=== PATIENT | male | born 1980 | race Caucasian/White ===

== ENCOUNTER 2020-05-12 10:54 | Outpatient (CLI) | payer OTHER, MEDICAID, SELFPAY ==
[2020-05-17 06:51] LABS: SARS-CoV-2 RNA Undetected (Undetected); SARS-CoV-2 Specimen Source Nasopharynx
== END 2020-05-12 11:14 ==
PROVIDERS: PCP Nurse Practitioner Family; Visit Provider Family Medicine
DX: Z11.59 Encounter for screening for other viral diseases (principal)
CPT/HCPCS: U0003

== ENCOUNTER → 2020-06-19 10:27 | Outpatient (BNVA) | payer OTHER, MEDICAID, SELFPAY | PROVIDERS: PCP Physician Assistant; Referring Provider Physician Assistant; Visit Provider Surgery | DX: K60.2 Anal fissure, unspecified (principal); E11.9 Type 2 diabetes mellitus without complications | CPT/HCPCS: 99202 ==

== ENCOUNTER 2021-06-03 09:48 | Outpatient (REF) | payer MEDICARE, MEDICAID, SELFPAY ==
[2021-06-03 14:22] LABS: Hemoglobin A1C 6.1 % (<5.7)
[2021-06-03 14:27] LABS: ALT 63 U/L (16-63); AST 31 U/L (15-37); Albumin 3.7 g/dL (3.4-5.0); Alkaline Phosphatase 68 U/L (46-116); Anion Gap 7.7 mmol/L (3-11); BUN 17 mg/dL (7-18); Bilirubin, Total 0.6 mg/dL (0.2-1.0); CO2 29.3 mmol/L (21.0-32.0); COMMENT (LAB VIEW ONLY) 136.87 mg/dL; CREATININE 0.8 mg/dL (0.70-1.30); Calcium 8.7 mg/dL (8.5-10.1); Calculated LDL 65 mg/dL (<100); Chloride 107 mmol/L (98-107); Cholesterol 130 mg/dL (<200); Glucose 165 mg/dL (74-106); HDL Cholesterol 34 mg/dL (40-60); Microalb ug/mg Crea 13.8 ug/mg Cr; Potassium 3.5 mmol/L (3.5-5.1); Sodium 144 mmol/L (136-145); Total Protein 6.8 g/dL (6.4-8.2); Triglyceride 159 mg/dL (<150)
[2021-06-04 01:30] LABS: Vitamin D 25 Total 25.2 ng/mL (30-100)
== END 2021-06-03 09:49 | disposition home or self-care (01) ==
LOC: NCHCN 09:48
PROVIDERS: PCP Physician Assistant; Visit Provider Physician Assistant
DX: E11.9 Type 2 diabetes mellitus without complications (principal); E78.5 Hyperlipidemia, unspecified; I10 Essential (primary) hypertension; E55.9 Vitamin D deficiency, unspecified
CPT/HCPCS: 80053; 80061; 82306; 82043; 82570; 83036

== ENCOUNTER 2021-08-11 11:02 | Outpatient (CLI) | payer MEDICARE, MEDICAID, SELFPAY ==
--- NOTE | 2021-08-11 15:05 | DI.RAD_ITS ---
Exam(s) XR CHEST 2V PA LATERAL EXAM: XR CHEST 2V PA LATERAL CLINICAL HISTORY: DYSPNEA R06.00. TECHNIQUE: 2D digital imaging was performed. COMPARISON: CR CHEST 2 VIEWS PA,LAT from 09/26/2015 FINDINGS: Heart size is normal. The mediastinum is not widened. Left lung is clear. There is very subtle increased markings in the mid right lung zone IMPRESSION: Subtle increased markings lateral right lung level. Follow-up chest radiograph after appropriate cli nical interval recommended. DATA REPOSITORY: RADIATION DOSE DELIVERED:
== END 2021-08-11 11:22 ==
PROVIDERS: PCP Physician Assistant; Visit Provider Nurse Practitioner Family
DX: R06.00 Dyspnea, unspecified (principal); R91.8 Other nonspecific abnormal finding of lung field
CPT/HCPCS: 71046

== ENCOUNTER 2021-08-11 14:06 | Outpatient (REF) | payer MEDICARE, MEDICAID, SELFPAY ==
[2021-08-12 13:56] LABS: COVID-19 RT-PCR UVMMC Result Negative (Negative)
== END 2021-08-11 14:07 | disposition home or self-care (01) ==
LOC: LBN 14:06
PROVIDERS: PCP Physician Assistant; Visit Provider Nurse Practitioner Family
DX: Z20.822 Contact with and (suspected) exposure to COVID-19 (principal); J06.9 Acute upper respiratory infection, unspecified
CPT/HCPCS: U0003; U0005

== ENCOUNTER 2021-10-28 02:43 | Outpatient (CLI) | payer MEDICARE, MEDICAID, SELFPAY ==
[2021-10-28 14:43] LABS: HCT 53.6 % (40.0-50.0); HGB 17.1 g/dL (13.5-17.5); MCHC 31.9 % (32.0-36.0); MPV 10.8 fL (8.0-11.0); Platelet Count 160 10^3/uL (130-400); RDW 13.2 % (11.8-14.1); RDW-SD 45.9 fL; WBC 4.32 10^3/uL (4.4-10.8)
[2021-10-28 14:50] LABS: Anion Gap 6.1 mmol/L (3-11); BUN 13 mg/dL (7-18); CO2 32.9 mmol/L (21.0-32.0); CREATININE 0.9 mg/dL (0.70-1.30); Calcium 9.1 mg/dL (8.5-10.1); Chloride 106 mmol/L (98-107); Glucose 112 mg/dL (74-106); Potassium 4.2 mmol/L (3.5-5.1); Sodium 145 mmol/L (136-145)
[2021-10-29 10:38] LABS: Prealbumin 23 mg/dL (20-40)
== END 2021-10-28 02:44 | disposition home or self-care (01) ==
LOC: LBO 02:43
PROVIDERS: Surgery Vascular Surgery; PCP Physician Assistant; Visit Provider Physician Assistant
DX: I83.893 Varicose veins of bilateral lower extremities with other complications (principal); Z01.818 Encounter for other preprocedural examination
CPT/HCPCS: 80048; 85027; 84134

== ENCOUNTER 2021-10-28 07:41 | Outpatient (CLI) | payer MEDICARE, MEDICAID, SELFPAY ==
--- OUTSIDE RECORDS SUMMARY | 2021-10-28 07:57 | XMS_ITS ---
:1980 Author Care Team Providers Name Role Phone VASU GALLO Primary Care Provider [phone] [facility] OTHER [phone] Allergies Code Code System Name Reaction Severity Status Onset NKDA ? Medications Name Status Start Date Stop Date ? ? Alma Allergy 180 mg tablet Active ? No t available Take 1 tablet every day by oral route. atorvastatin 40 mg tablet Active ? Not av ailable Take 1 tablet every day by oral route. Farxiga 10 mg tablet Active ? Not availab le Take 1 tablet every day by oral route. furosemide 20 mg tablet Active ? Not avai lable Take 1 tablet every day by oral route. hydroxyzine HCl 25 mg tablet Active ? Not available Take 1 tablet every day by oral route. lisinopril 20 mg tablet Active ? Not avai lable Take 1 tablet every day by oral route. Lyrica 75 mg capsule Active ? Not availab le Take 1 capsule twice a day by oral route at bedtime. omeprazole 20 mg capsule,delayed release Active ? Not available Take 1 capsule every day by oral route. Trulicity 0.75 mg/0.5 mL subcutaneous pen injector Active ? Not available Inject by subcutaneous route. Vitamin D3 25 mcg (1,000 unit) capsule Active ? Not available Take 1 microgram every day by oral route. Problems Name Status Onset Date Source ? Diabetes Mellitus Unknown 04/27/2021 ? Type 2 Diabetes Mellitus Active 04/27/2021 ? Vitamin D Deficiency Active 04/27/2021 ? Hyperlipidemia Active 04/27/2021 ? Morbid Obesity Active 04/27/2021 ? Insomnia Active 04/27/2021 ? Neuropathy Due to Diabetes Mellitus Active 04/27/2021 ? Hypertensive Disorder Active 04/27/2021 ? Seasonal Allergic Rhinitis Active 04/27/2021 ? Gastroesophageal Reflux Disease Active 04/27/2021 ? Steatosis of Liver Active 04/27/2021 ? Low Back Pain Active 04/27/2021 ? Sleep Apnea Active 04/27/2021 ? Edema Active 04/27/2021 ? Apnea Active 04/27/2021 ? Obstructive Sleep Apnea Syndrome Active ? ? Procedures None recorded. Results Lab Results None recorded. Past Encounters 04/28/2021 Obstructive Sleep Apnea Syndrome; Insomn ia Darcy Guzman [employer]: [address] [place] [id number], Ph. Social History Tobacco Smoking Status Former Smoker Notes: quite i n 2013 Vaccine List None recorded. Plan of Care Reminders Provider Appointments None ? ? recorded. Lab None ? ? recorded. Referral None ? ? recorded. Procedures None ? ? recorded. Surgeries None ? ? recorded. Imaging None ? ? recorded. Vitals Height Weight BMI Blood Pressure 180.34 cm 145.15 kg 44.6 kg/m2 123/79 mm[Hg]
--- NOTE | 2021-10-28 08:30 | RT.EKG_ITS ---
APPROVED REPORT Exam: Resting ECG Reason for Exam: pre-op Patient Location: O HR:74 bpm ECG Measurements Heart Rate 74 AXIS MI 191 P 33 QRSd 83 QRS 27 QT 375 T 35 QTc 416 Conclusion Sinus rhythm...normal P axis, V-rate 60- 99 Normal Electrocardiogram
== END 2021-10-28 07:42 | disposition home or self-care (01) ==
LOC: RT 07:55
PROVIDERS: PCP Physician Assistant; Visit Provider Surgery Vascular Surgery
DX: Z01.818 Encounter for other preprocedural examination (principal); I83.893 Varicose veins of bilateral lower extremities with other complications; I83.891 Varicose veins of right lower extremity with other complications
CPT/HCPCS: 80048; 85027; 84134; 93005; 93010

== ENCOUNTER 2021-11-06 01:07 | Outpatient (CLI) | payer MEDICARE, MEDICAID, SELFPAY ==
--- NOTE | 2021-11-06 | DI.US_ITS ---
Exam(s) US LOWER EXTREMITY VENOUS RT EXAM: US LOWER EXTREMITY VENOUS RT CLINICAL HISTORY: VARICOSE VEINS WITH EDEMA, I83.893,S/P GSV VNUS, ? DVT TECHNIQUE: Right lower extremity venous ultrasound performed using grayscale, color-flow, and spectr al Doppler analysis. COMPARISON: No exams were available for comparison FINDINGS: The right common femoral, femoral and popliteal veins demonstrate normal compressibility, augmentatio n, and color Doppler. The posterior tibial veins are patent. The saphenofemoral junction is unremark able. There is thrombus seen in the greater saphenous vein measuring 14 cm in length. The most prox imal aspect of this thrombus lies 3 cm from the saphenofemoral junction. There also a thrombosed sup erficial vein seen in the right calf which measures 3.8 cm in length. There is no evidence of a Bake r cyst. The soft tissues are unremarkable. IMPRESSION: 1. No DVT. 2. Thrombosed greater saphenous vein and a thrombosed superficial right calf vein. The most proximal aspect of the greater saphenous vein thrombus lies 3 cm from the saphenofemoral junction. DATA REPOSITORY:
== END 2021-11-06 01:27 ==
PROVIDERS: PCP Physician Assistant; Visit Provider Surgery Vascular Surgery
DX: I83.893 Varicose veins of bilateral lower extremities with other complications (principal); I82.811 Embolism and thrombosis of superficial veins of right lower extremity
CPT/HCPCS: 93971

== ENCOUNTER 2022-01-05 16:08 | Outpatient (REF) | payer MEDICARE, MEDICAID, SELFPAY | END 2022-01-05 16:09 | disposition home or self-care (01) | LOC: LBN 16:08 | PROVIDERS: PCP Physician Assistant; Visit Provider Nurse Practitioner Family | DX: L03.90 Cellulitis, unspecified (principal) | CPT/HCPCS: 87070; 87205 ==

== ENCOUNTER 2022-09-04 19:36 | Emergency (ER) | payer OTHER, SELFPAY ==
[2022-09-04 19:34] VITALS: BP 128/68; PULSE 90; RESP 16; TEMP 36.3; O2SAT 95
--- NOTE | 2022-09-04 19:45 | DI.RAD_ITS ---
Exam(s) XR PORTABLE CHEST AP EXAM: XR PORTABLE CHEST AP CLINICAL HISTORY: cough, shortness of breath. TECHNIQUE: 2D digital imaging was performed. COMPARISON: CR XR CHEST 2V PA LATERAL from 08/11/2021 FINDINGS: Single AP portable view. Heart size is upper normal. The mediastinum is not widened. Lungs are clear. No infiltrates nor obvious pleural effusions. IMPRESSION: No acute pulmonary findings on this single AP portable view of the chest. DATA REPOSITORY: RADIATION DOSE DELIVERED:
[2022-09-04] MEDS: Inhaler, Assist Device 1 EACH MC (20:00)
[2022-09-04] MEDS: Albuterol HFA 8 GM 60 PUFF INH IH (20:03)
[2022-09-04] MEDS: Doxycycline Hyclate 100 MG CAP PO (20:03)
[2022-09-04] MEDS: predniSONE 20 MG TAB 40 MG PO (20:03)
--- NOTE | 2022-09-04 20:17 | DI.VRAD_ITS ---
PROCEDURE INFORMATION: Exam: XR Chest Exam date and time: 09/04/2022 7:46 PM Age: 42 years old Clinical indication: Cough and shortness of breath; Patient HX: Cough, shortness of breath TECHNIQUE: Imaging protocol: Radiologic exam of the chest. Views: 1 view. COMPARISON: CR XR CHEST 2V PA LATERAL 08/11/2021 2:57 PM FINDINGS: Lungs: No pulmonary consolidation is seen. Pleural spaces: No pleural effusion or pneumothorax is demonstrated. Heart/Mediastinum: Heart size is normal. Bones/joints: The visualized bony structures appear grossly intact, as seen. IMPRESSION: No active disease is seen in the chest. Dictated and Authenticated by: Lasha Logan MD. Ordering:ZEFERINO Fernandes MD
--- NOTE | 2022-09-04 20:17 | W.ED.GENAD ---
Discharge Plan Disposition Patient Disposition: HOME Condition: Stable Discharge Details Clinical Impression: Bronchitis Primary Care Provider: Phillip Barillas ED Provider: Dena Drake Home Meds and New Rx's Prescriptions: New doxycycline hyclate 100 mg tablet 100 mg PO BID 14 Days Qty: 28 0RF prednisone 20 mg tablet 40 mg PO ONCE Qty: 14 0RF Trulicity 1.5 mg/0.5 mL pen injector 1.5 mg subcut QWEEK Qty: 2 1RF Continued lisinopril 20 mg tablet 20 mg PO DAILY hydrocortisone acetate [Anucort-HC] 25 mg suppository 25 mg AR DAILY albuterol sulfate [ProAir HFA] 90 mcg/actuation HFA aerosol inhaler 2 puff IH Q6H PRN omeprazole magnesium [Prilosec OTC] 20 MG tablet,delayed release (DR/EC) 20 mg PO DAILY atorvastatin [Lipitor] 40 MG tablet 40 mg PO DAILY Label Comments: not taking Trulicity 1.5 mg/0.5 mL pen injector 1.5 device SUBCUT .WEEKLY Label Comments: INJECT 1.5 MG UNDER THE SKIN WEEKLY Farxiga 10 mg tablet 1 tab PO DAILY Label Comments: TAKE 1 TABLET BY MOUTH EVERY MORNING Discharge Instructions Instructions: Acute Bronchitis (ED) Additional Instructions: Use the albuterol, 2 puffs every 4-6 hours as needed for cough, wheeze, shortness of breath Prednisone 40 mg daily for the next 4 days, you received a dose this evening Take antibiotic as prescribed Yogurt daily while on the antibiotic, you will need your next dose tomorrow as you received a dose this evening Return earlier should you have any worsening complaints Follow-up with your doctor at your scheduled appointment Referrals: Phillip Barillas [Primary Care Provider] - 1 week Discharge Data Discharge Date/Time-TO BE ENTERED AT DEPARTURE: 09/04/22 20:37 Medical Decision Making Patient placed on doxycycline and prednisone for bronchitis of greater than 2 weeks of symptoms Return precautions discussed and patient expressed understanding No hypoxia, low suspicion for pulmonary embolism clinically after reviewing vital and presenting signs and symptoms, ambulatory with steady gait without hypoxia Return precautions discussed and patient expressed understanding Inhaler with spacer supplied HPI General Date/Time Provider Initiated Documentation: 09/04/22 19:38. HPI Narrative: 42-year-old male presents with report of shortness of breath, cough, productive brown sputum. Denies history of asthma or COPD. Does not smoke tobacco. Did just fly from [place] and arrived this morning at 420. States that he was at a senior care when he was in [place] and tested negative for COVID there was started on antibiotics for bronchitis and he did not have this prescription. He states that symptoms have worsened. He denies illicit drug use, fever, or chills. He denies any calf pain or swelling, he denies any long period of immobilization. Related Data Home Medications Medication Instructions Recorded Confirmed omeprazole magnesium 20 mg 20 mg PO DAILY 01/30/13 09/04/22 tablet,delayed release (Prilosec OTC) atorvastatin 40 mg tablet (Lipitor) 40 mg PO DAILY 09/26/15 09/04/22 albuterol sulfate 90 mcg/actuation 2 puff inhalation Q6H PRN 06/18/20 09/04/22 aerosol inhaler (ProAir HFA) hydrocortisone acetate 25 mg 25 mg AR DAILY 06/18/20 09/04/22 rectal suppository (Anucort-HC) lisinopril 20 mg tablet 20 mg PO DAILY 06/19/20 09/04/22 dapagliflozin 10 mg tablet 1 tab PO DAILY 09/04/22 09/04/22 (Farxiga) doxycycline hyclate 100 mg tablet 100 mg PO BID 14 days #28 tabs 09/04/22 dulaglutide 1.5 mg/0.5 mL 1.5 device subcut .WEEKLY 09/04/22 09/04/22 subcutaneous pen injector (Trulicity) dulaglutide 1.5 mg/0.5 mL 1.5 mg (0.5 mL) subcut QWEEK #2 mL 09/04/22 subcutaneous pen injector (Trulicity) prednisone 20 mg tablet 40 mg PO ONCE #14 tabs 09/04/22 Previous Rx's Medication Instructions Recorded doxycycline hyclate 100 mg tablet 100 mg PO BID 14 days #28 tabs 09/04/22 dulaglutide 1.5 mg/0.5 mL 1.5 mg (0.5 mL) subcut QWEEK #2 mL 09/04/22 subcutaneous pen injector (Trulicity) prednisone 20 mg tablet 40 mg PO ONCE #14 tabs 09/04/22 Allergies Allergy/AdvReac Type Severity Reaction Status Date / Time enviornmental Allergy head Uncoded 09/04/22 19:38 congestion General Stated Complaint: RespSymp ANUP: 4 Review of Systems All systems reviewed & are unremarkable except as noted in HPI and below PFSH All Active Problems (Updated 09/04/22 @ 20:23 by WISAM Stevens) Bronchitis (Acute) Anal fissure (Acute) Dyspnea (Acute) Hemorrhoids (Acute) Medical History (Updated 09/04/22 @ 20:23 by WISAM Stevens) Abnormal liver function test Chronic hoarseness Diabetes mellitus Edema Generalized anxiety disorder Hyperlipidemia Insomnia Learning disability Migraine without aura Nicotine addiction Obesity Social History Smoking/Tobacco Use Status: Former Tobacco Use Smoking risk assessment performed?: Yes Alcohol Intake: never Drug use: Never Substance use type: does not use Exam Const General: cooperative, comfortable and no acute distress Orientation: alert and oriented x3 Eyes General: appearance normal, both eyes and all related structures Resp Effort & Inspection: normal respiratory effort Auscultation: clear to auscultation bilaterally Cardio Rate: regular rate Rhythm: regular rhythm Extrem Other: no calf swelling or tenderness, distal pulses intact Course Vital Signs Vital signs: Vital Signs Temperature 36.3 C L 09/04/22 19:34 Pulse 90 09/04/22 19:34 Respiratory Rate 16 09/04/22 19:34 Blood Pressure 128/68 09/04/22 19:34 Pulse Oximetry 95 09/04/22 19:34 Temperature 36.3 C L 09/04/22 19:34 Temperature Source Temporal Artery Scan 09/04/22 19:34 Pulse 90 09/04/22 19:34 Respiratory Rate 16 09/04/22 19:34 Respiratory Effort 09/04/22 20:04 Respiratory Depth Normal 09/04/22 20:04 Blood Pressure 128/68 09/04/22 19:34 Blood Pressure Position Sitting 09/04/22 19:34 Pulse Oximetry 95 09/04/22 19:34 Oxygen Delivery Method Room Air 09/04/22 19:34 Oxygen Flow Rate 0 09/04/22 19:34 Pain Level 9 09/04/22 19:34
== END 2022-09-04 20:37 | disposition home or self-care (01) ==
LOC: ER 20:29
PROVIDERS: Emergency Provider Physician Assistant; PCP Physician Assistant
DX: J20.9 Acute bronchitis, unspecified (principal); Z20.822 Contact with and (suspected) exposure to COVID-19; R06.02 Shortness of breath
CPT/HCPCS: 99283; 71045; J7512

== ENCOUNTER 2022-10-18 17:44 | Outpatient (REF) | payer MEDICARE, SELFPAY ==
[2022-10-18 18:28] LABS: HCT 49.4 % (40.0-50.0); MCH 31.4 pg (27.0-33.0); MCHC 34.4 % (32.0-36.0); MCV 91 fL (80-95); MPV 11.3 fL (8.0-11.0); Platelet Count 191 10^3/uL (130-400); RBC 5.42 10^6/uL (4.36-5.78); RDW 13.1 % (11.8-14.1); RDW-SD 43.5 fL; WBC 5.01 10^3/uL (4.4-10.8)
[2022-10-18 18:40] LABS: ALT 73 U/L (16-63); AST 33 U/L (15-37); Alkaline Phosphatase 71 U/L (46-116); Anion Gap 8.6 mmol/L (3-11); BUN 12 mg/dL (7-18); Bilirubin, Total 0.7 mg/dL (0.2-1.0); CO2 26.4 mmol/L (21.0-32.0); Calculated LDL 74 mg/dL (<100); Chloride 103 mmol/L (98-107); Cholesterol 142 mg/dL (<200); Estimated GFR 97.58 (mL/min/1.73m2); Glucose 252 mg/dL (74-106); HDL Cholesterol 39 mg/dL (40-60); Potassium 4.1 mmol/L (3.5-5.1); Sodium 138 mmol/L (136-145); Total Protein 7.1 g/dL (6.4-8.2); Triglyceride 148 mg/dL (<150)
[2022-10-18 18:48] LABS: Hemoglobin A1C 7.2 % (<5.7)
== END 2022-10-18 17:45 | disposition home or self-care (01) ==
LOC: NCHCN 17:44
PROVIDERS: PCP Physician Assistant; Visit Provider Physician Assistant
DX: E78.5 Hyperlipidemia, unspecified (principal); E11.9 Type 2 diabetes mellitus without complications; K21.9 Gastro-esophageal reflux disease without esophagitis
CPT/HCPCS: 80053; 80061; 85027; 83036

== ENCOUNTER → 2023-04-27 10:49 | Outpatient (BNVA) | payer MEDICARE, SELFPAY | PROVIDERS: PCP Physician Assistant; Referring Provider Physician Assistant; Visit Provider Surgery | DX: K62.5 Hemorrhage of anus and rectum (principal) | CPT/HCPCS: 99214 ==

== ENCOUNTER 2023-05-12 11:26 | Day surgery (SDC) | payer MEDICARE, SELFPAY ==
[2023-05-12] VITALS (7 sets, daily range): BP systolic 107–134; BP diastolic 50–102; PULSE 60–76; RESP 14–20; TEMP 36.5–36.8; O2SAT 94–99; BMI 46.3
--- NOTE | 2023-05-12 07:21 | W.PM.DSUDISC ---
Date of service: 05/12/23 Time of Service: 13:46 Discharge Plan Disposition Patient Disposition: Home Condition: Good Discharge Details Reason For Visit: Colonoscopy Attending Provider: Vipul Ceballos Primary Care Provider: Phillip Barillas Home Meds and New Rx's Prescriptions: Continued lisinopril 20 mg tablet 20 mg PO DAILY omeprazole 40 mg capsule,delayed release(DR/EC) 40 mg PO DAILY 30 Days Qty: 30 3RF pregabalin [Lyrica] 300 mg capsule 300 mg PO DAILY zolpidem [Ambien] 10 mg tablet 10 mg PO QHS PRN pregabalin [Lyrica] 300 mg capsule 300 mg PO QHS furosemide 20 mg tablet 20 mg PO DAILY PRN atorvastatin [Lipitor] 40 MG tablet 40 mg PO DAILY Patient Comments: not taking Trulicity 1.5 mg/0.5 mL pen injector 1.5 device SUBCUT .WEEKLY Patient Comments: INJECT 1.5 MG UNDER THE SKIN WEEKLY Farxiga 10 mg tablet 1 tab PO DAILY Patient Comments: TAKE 1 TABLET BY MOUTH EVERY MORNING Discontinued polyethylene glycol 3350 17 gram/dose powder 238 g PO ONCE Qty: 238 0RF Rx Instructions: take per colonoscopy instructions bisacodyl [Dulcolax (bisacodyl)] 5 mg tablet,delayed release (DR/EC) 5 mg PO ONCE Qty: 8 0RF Rx Instructions: take per colonoscopy instructions Discharge Instructions Additional Instructions: Cuong, we were able to complete your colonoscopy today without any difficulty at all. The quality of your preparation was outstanding. I had great visualization. I really did not see anything out of the ordinary that would explain bloody bowel movements. I did, however, perform random biopsies all along the length of your intestine to assess for other forms of colitis. When I have the results of those biopsies I will be in touch. 1. If tolerated, consume a soft, low fiber diet for 1-2 days. 2[address] Do not drive, drink alcohol, operate machinery, make critical decisions, or do activities that require coordination or balance for 24 hours. 3. Because air was put into your colon during the procedure, expelling air from your rectum (passing gas or farting) is normal. 4. You may not have a bowel movement for 1-3 days because of the colonoscopy prep. This is normal. 5. Go directly to the emergency room if you notice any of the following: Develop chills (warm to touch), or if you have a thermometer and your temperature is above 101 Difficulty breathing or difficultly swallowing Persistent vomiting Severe abdominal pain, other than gas cramps Severe chest pain Black, tarry stools Any bleeding ? exceeding one tablespoon 6. Call your physician if the site where your intravenous was started becomes red, swollen, painful, and warm to touch. 7. Your physician has reviewed your pre-procedure medications. Please continue to take those medications as previously ordered. You will be given specific information/education regarding any changes to your medications before leaving. Activity:: Activity as Tolerated Diet:: As Tolerated DS: Diagnosis Discharge Diagnosis (1) Hematochezia: Status: Acute
--- NOTE | 2023-05-12 07:22 | W.COLOREPORT ---
Date of service: 05/12/23 Time of Service: 13:47 Colonoscopy Report Date of procedure: 05/12/23 Pre-op diagnosis general: Hematochezia Post-op diagnosis procedure note: same Procedure: Colonoscopy Surgeon: Vipul Ceballos Anesthesia Type: General:No Airway Estimated blood loss (mL): 10 Pathology: other (Random biopsies of the cecum, ascending, transverse, descending and sigmoid colons. Random biopsies of the rectum. All biopsies were sent as a single specimen) Complications: None Disposition: same day Indications: Cuong is 42 years old, and has been experiencing hematochezia. Prep: Miralax/Dulcolax Procedure Start Time: 13:19 Procedure End Time: 13:37 Retraction Time: 12 Findings: Normal colonoscopy Procedure Description: After the induction of monitored anesthetic care, and with the patient in left lateral decubitus position, I began by performing an external anorectal exam.? Perineum and skin were normal, as was the anal verge.? There was no evidence of external hemorrhoids.? Next, I performed a digital rectal exam.? I did not appreciate any abnormal findings.? Next, I advanced a colonoscope into the rectal vault.? I performed retroflexion.? This appeared normal. I did not see any signs of internal hemorrhoids.? Using insufflation, I then advanced the colonoscope beyond the rectal folds and into the sigmoid colon before advancing towards the cecum.? The quality of the prep was excellent.? The scope was noted to be in the cecum by identification of the ileocecal valve and appendiceal orifice.? I then began withdrawing the colonoscope using repeated irrigation as necessary for full evaluation of the colonic mucosa. ?Once the scope was withdrawn to the level of the rectum, great care was taken to examine portions of the rectal folds.? All of the colon mucosa appeared normal to me. I did not see any signs of inflammation, bleeding, diverticulosis, polyps or colon tumors. I did perform random biopsies using cold forceps along the entire length of the large intestine including the cecum, ascending, transverse, descending, and sigmoid colons. I also perform random biopsies of the rectum. All biopsies went as a single specimen. Finally, the scope was withdrawn and the patient was brought to the same-day surgery recovery unit as the anesthetic wore off. ?The findings and instructions were shared with the patient prior to discharge.
[2023-05-12] MEDS: Lactated Ringers 1,000 ML 80 ML IV (11:50)
--- NOTE | 2023-05-12 12:12 | W.ANESPRE ---
General Info Date of Service Date Performed: 05/12/23 Height: 5 ft 11 in Weight: 150.8 kg Body Mass Index (BMI): 46.3 Surgical Procedure: Operation Date: 05/12/23 13:05 Proposed Procedure Side Surgeon aureliano Ceballos MD Meds Allergies and Home Medications Allergies Allergy/AdvReac Type Severity Reaction Status Date / Time enviornmental Allergy head Uncoded 05/10/23 09:34 congestion Home Medication Medication Instructions Recorded atorvastatin 40 mg tablet (Lipitor) 40 mg PO DAILY 09/26/15 lisinopril 20 mg tablet 20 mg PO DAILY 06/19/20 dapagliflozin propanediol 10 mg 1 tab PO DAILY 09/04/22 tablet (Farxiga) dulaglutide 1.5 mg/0.5 mL 1.5 device subcut .WEEKLY 09/04/22 subcutaneous pen injector (Trulicity) pregabalin 300 mg capsule (Lyrica) 300 mg PO DAILY 10/21/22 omeprazole 40 mg capsule,delayed 40 mg PO DAILY 30 days #30 caps 02/02/23 release pregabalin 300 mg capsule (Lyrica) 300 mg PO QHS 04/11/23 zolpidem 10 mg tablet (Ambien) 10 mg PO QHS PRN 04/11/23 furosemide 20 mg tablet 20 mg PO DAILY PRN 04/27/23 Current Visit Medications: Current Medications Generic Name Dose Route Start Last Admin Trade Name Freq PRN Reason Stop Dose Admin Ringer's Solution 1,000 mls @ 80 mls/hr 05/12/23 06:00 05/12/23 11:50 IV 06/10/23 23:59 80 mls/hr INFUSION NOAM Administration IV Miscellaneous Supplies 1 each 05/12/23 06:00 Iv Access IV 06/10/23 23:59 DIRECTED NOMA Sodium Chloride 0 ml 05/12/23 06:00 Normal Saline Flush 10 Ml Syr IV 06/10/23 23:59 PRN PRN Sodium Chloride 0 ml 05/12/23 06:00 Normal Saline 10 Ml Vial IJ 06/10/23 23:59 DIRECTED PRN Sterile Water 0 ml 05/12/23 06:00 Water,Injection,Sterile 10 Ml Vial IJ 06/10/23 23:59 DIRECTED PRN PFSH Active Problems Active Problems: Problem Status Onset Code Hemorrhoids K64.9 Dyspnea R06.00 Anal fissure K60.2 Blood in stool K92.1 Hoarseness R49.0 Hematochezia K92.1 Medical History Medical History Abnormal liver function test Benign paroxysmal positional vertigo Chronic hoarseness Diabetes mellitus Diabetic neuropathy Edema Fatty liver Generalized anxiety disorder GERD (gastroesophageal reflux disease) Hyperlipidemia Insomnia Learning disability Low back pain Migraine without aura Morbid obesity Nicotine addiction Obesity Seasonal allergies Simple varicose veins Sleep apnea Vitamin D deficiency Surgical History Surgical History (Updated 05/12/23 @ 11:38 by Stephie Joiner) History of cholecystectomy History of hernia repair Hx of varicose vein stripping Tobacco Smoking/Tobacco Use Status: Former Tobacco Use Alcohol Alcohol Intake: never Substance Use Substance use: Never Substance use type: does not use Vital Signs and Lab Results Vital Signs Most Recent Vital Signs in EMR: Most Recent Vital Signs Temp Pulse Resp BP Pulse Ox 36.6 C 76 18 115/102 H 96 05/12/23 11:30 05/12/23 11:30 05/12/23 11:30 05/12/23 11:30 05/12/23 11:30 Point of Care Results Point of Care Results: Finger Stick Blood Glucose 110 05/12/23 11:34 Lab Results Blood Type / Crossmatch: No Data to Display Complete Blood Count: No Data to Display Complete Metabolic Panel: No Data to Display Liver Function Panel: No Data to Display Coagulation Panel: No Data to Display Cardiac Panel: No Data to Display Arterial Blood Gas: No Data to Display Venous Blood Gas: No Data to Display Pancreas Panel: No Data to Display Thyroid Panel: No Data to Display Infectious Disease: No Data to Display Blood Cultures: No Data to Display Toxicology Panel: No Data to Display Imaging and Studies Imaging and Studies Study information below may be from another EMR and interpreted by another provider. Please see original notes in EMR for more complete details. EKG Summary: 10/28/2021: Exam: Resting ECG Reason for Exam: pre-op Patient Location: O HR:74 bpm ECG Measurements Heart Rate 74 AXIS MN 191 P 33 QRSd 83 QRS 27 QT 375 T35 QTc 416 Conclusion Sinus rhythm...normal P axis, V-rate 60- 99 Normal Electrocardiogram Echocardiogram Summary: 06/22/2016: *STUDY CONCLUSIONS* Summary: 1. Left ventricle: The cavity size was normal. Wall thickness was at the upper limits of normal. Systolic function was normal. The estimated ejection fraction was 55-60%. Wall motion was normal; there were no regional wall motion abnormalities. 2. Right ventricle: The cavity size was normal. Systolic function was normal. Anesthesia Assessment and Plan Anesthesia History Personal History: No History of Anesthesia Complications Family History: Family History Unknown Exercise Tolerance Exercise Tolerance: Metabolic Equivalents>4 Pertinent Negatives Pertinent Negatives: No Major Cardiovascular Symptoms or Complaints and No Major Pulmonary Symptoms or Complaints Cardiac & Pulmonary Exam Cardiac Exam: Normal S1/S2 Heart Sounds Pulmonary Exam: Clear Bilateral Breath Sounds Implantable Cardiac Device Does patient have a Pacemaker or an ICD?: No Airway Exam Known Difficult Airway: No Mallampati Class: 2 Mouth Opening: Normal (> 3cm) Thyromental Distance: Greater than 3 cm Neck Range of Motion: Full ROM Neck Circumference: Thick Teeth Condition: Normal Dentition ASA Classification ASA Score: ASA 3 Emergency Case?: No NPO Status NPO Status: NPO Clears >2 hours, Solids >8 hours Anesthesia Plan Resuscitation Status: Full Code Anesthesia Technique: General Anesthesia Airway Planned: Endotracheal Tube (RSI, Trulicity) Monitors Used: Standard Monitors Preoperative Comments:: Discussion with patient and Dr. Ceballos regarding recent administration of Trulicity and dosing of 05/09/23. Patient given the option to postpone colonoscopy today or to review the risk of aspiration and proceed with RSI/ ETT. Patient wishes to proceed with surgery as scheduled today and accepts the increased risk of aspiration secondary to Trulicity.
--- NOTE | 2023-05-12 13:01 | W.PM.PROGNOT ---
Date of Service Date of service: 05/12/23 Time of Service: 13:01 Assessment and Plan Assessment and plan (1) Blood in stool: Status: Acute Assessment and plan: In light of recent evidence regarding gastroparesis and Trulicity, we had a long discussion with Cuong, in combination with risk-management team from the hospital. This regarded the planned anesthesia. Originally, we intended to move forward with general anesthesia with a natural airway, however, in order to maximize patient's safety, and minimize chance of aspiration, we do recommend oral endotracheal intubation for this colonoscopy. We explained the nature of the risks, relative to the other risks and benefits of the procedure to Cuong. I think he has a great understanding of this, and he accepts the increased risk associated with periprocedural complications from his Trulicity, and he would like to proceed with colonoscopy as planned. Objective Last Vital Signs Temp 97.9 F 05/12/23 11:30 Pulse 76 05/12/23 11:30 Resp 18 05/12/23 11:30 BP 115/102 H 05/12/23 11:30 Pulse Ox 96 05/12/23 11:30 Time Spent with Patient Time Spent with Patient: 35-49 minutes Time was spent: counseling the patient and care coordination
--- NOTE | 2023-05-12 13:30 | BOWEL_PTH ---
PATIENT: Cuong Khoury LOC: [facility] U#:[id number] AGE/SX: 42/M ROOM: RE05/12/[address]: Vipul Ceballos MD : 1980 BED: DIS: 05/12/2023 SPEC #: [id number] RECD: 05/12/23 17:09 STATUS: LACHO RE #: [id number] RENUKA: 05/12/23 13:[address]: Vipul Ceballos DEPT: Surgical Specimen RECD BY: Dena Lee ENTERED: 05/12/23 17:10 SP TYPE: Bowel OTHR DR: Phillip Barillas Tissues: 1 - BIOPSY BOWEL Procedures: GROSS AND MICRO LEVEL 4 Comments: [id number]
--- NOTE | 2023-05-12 14:24 | W.ANESPOSTOP ---
Postoperative Evaluation Date, Time and Location Date Performed: 05/12/23 Time Performed: 14:24 Patient Location: Day Surgery Unit Vital Signs Most Recent Imported Vital Signs: Most Recent Vital Signs Temp Pulse Resp BP Pulse Ox 36.7 C 71 14 111/67 99 05/12/23 14:07 05/12/23 14:07 05/12/23 14:07 05/12/23 14:07 05/12/23 14:07 Assessment Mental Status: Awake (Alert & Oriented to Patient Baseline) Airway and Respiratory Function: Patent airway with normal (patient baseline) respiratory exam Cardiovascular Function: Hemodynamically Stable Hydration Status: Adequately Hydrated Nausea & Vomiting: No Nausea or Vomiting Pain: Pt. Denies Any Pain Peripheral Nerve Block: Patient did not receive a nerve block
== END 2023-05-12 14:55 | disposition home or self-care (01) ==
PROVIDERS: PCP Physician Assistant; Visit Provider Surgery
PROC: 0DJD8ZZ Inspection of Lower Intestinal Tract, Via Natural or Artificial Opening Endoscopic (ICD-10-PCS; CPT 45378; principal; 2023-05-12 13:00)
DX: K92.1 Melena (principal)
CPT/HCPCS: 45380; 88305; J2001; J2405; J2704

== ENCOUNTER 2023-05-29 11:51 | Emergency (ER) | payer MEDICARE, SELFPAY ==
[2023-05-29 12:01] VITALS: BP 119/71; PULSE 96; RESP 18; TEMP 36.7; O2SAT 96
[2023-05-29 14:21] VITALS: RESP 18
--- NOTE | 2023-05-29 14:29 | ED.GENADUL_ITS ---
Discharge Plan Disposition Patient Disposition: Home Discharge Details Clinical Impression: Acute pain of right lower extremity, Cellulitis of right leg, Localized swelling of right lower leg Primary Care Provider: Phillip Barillas ED Provider: Evert Joyner Home Meds and New Rx's Prescriptions: New cephalexin 500 mg capsule 500 mg PO QID 5 Days Qty: 20 0RF Continued lisinopril 20 mg tablet 20 mg PO DAILY omeprazole 40 mg capsule,delayed release(DR/EC) 40 mg PO DAILY 30 Days Qty: 30 3RF zolpidem [Ambien] 10 mg tablet 10 mg PO QHS PRN pregabalin [Lyrica] 300 mg capsule 300 mg PO QHS furosemide 20 mg tablet 20 mg PO DAILY PRN Farxiga 10 mg tablet 10 mg PO DAILY fexofenadine 180 mg tablet 180 mg PO DAILY Patient Comments: pt states not taking atorvastatin [Lipitor] 40 MG tablet 40 mg PO DAILY Patient Comments: not taking Trulicity 1.5 mg/0.5 mL pen injector 1.5 device SUBCUT .WEEKLY Patient Comments: INJECT 1.5 MG UNDER THE SKIN WEEKLY Discharge Instructions Instructions: Cellulitis (ED) Additional Instructions: You were seen in the emergency department for your leg pain. Your ultrasound and your blood test showed no sign of a blood clot. Your exam was concerning for a possible skin infection for which you are receiving antibiotics that you should take as directed. As we discussed if we you develop any fevers chills weakness or any increasing pain please return to the emergency department. Otherwise please follow-up with your primary care provider this week. Your primary care provider will be asked to order an ultrasound of your right lower extremity to be performed tomorrow. Discharge Data Discharge Date/Time-TO BE ENTERED AT DEPARTURE: 05/29/23 16:25 Medical Decision Making This is an overall very well-appearing normothermic and not tachycardic 42-year-old male with right lower extremity warmth and swelling concerning for cellulitis versus DVT. No pain out of proportion to suggest necrotizing soft tissue infection. Negative limited bedside ultrasound. If patient has a positive D-dimer will plan on giving one-time dose of enoxaparin for 24 hours 1.5 mg/kg. If patient has had negative D-dimer, given negative limited bedside right lower extremity duplex study, will defer anticoagulation and request outpatient ultrasound to be performed tomorrow for right lower extremity. Given his tenderness and cobblestoning will treat for cellulitis with cephalexin as patient lacks risk factors for MRSA. Does have full range of motion in his right lower extremity and given his minor trauma I am not concerned for acute osseous abnormality so we will defer plain films at this point. Foot is warm and well-perfused so not concerns for acute vascular insult nor critical limb ischemia so will defer CT angiogram. No signs of phlegmasia. Patient has reassuring vitals so not concern for sepsis so I did not order empiric antibiotics blood cultures nor a lactate. Patient has been tolerating p.o. so I feel that he warrants an empiric trial of expectant outpatient management. 4 PM Negative D-dimerwe will proceed with empiric trial of expectant outpatient management. We will give patient return indications. I have asked health community health navigator Nupur to have the patient's primary care provider order an outpatient right lower extremity duplex study tomorrow to assess for DVT. No leukocytosis anemia nor thrombocytopenia. HPI General Date/Time Provider Initiated Documentation: 05/29/23 12:07 . HPI Narrative: This is a 42-year-old male status post right lower extremity phlebectomy approximately 1 year ago at [facility] [place] now with right lower extremity pain and swelling behind his right knee. He noticed this this morning when his friend pointed out the swelling. He has also had pain when ranging his right lower extremity. He has not taken any falls that he denies any trauma to his right lower extremity. He has had no fevers chills nausea nor vomiting. He has never had a PE nor DVT. He denies routine tobacco, ethanol, and illicits. He has been ambulating normally. No chest pain. Related Data Home Medications Medication Instructions Recorded Confirmed atorvastatin 40 mg tablet (Lipitor) 40 mg PO DAILY 09/26/15 05/29/23 lisinopril 20 mg tablet 20 mg PO DAILY 06/19/20 05/29/23 dulaglutide 1.5 mg/0.5 mL 1.5 device subcut .WEEKLY 09/04/22 05/29/23 subcutaneous pen injector ([employer]) omeprazole 40 mg capsule,delayed 40 mg PO DAILY 30 days #30 caps 02/02/23 05/29/23 release pregabalin 300 mg capsule (Lyrica) 300 mg PO QHS 04/11/23 05/29/23 zolpidem 10 mg tablet (Ambien) 10 mg PO QHS PRN 04/11/23 05/29/23 furosemide 20 mg tablet 20 mg PO DAILY PRN 04/27/23 05/29/23 dapagliflozin propanediol 10 mg 10 mg PO DAILY 05/19/23 05/29/23 tablet (Farxiga) fexofenadine 180 mg tablet 180 mg PO DAILY 05/19/23 cephalexin 500 mg capsule 500 mg PO QID 5 days #20 caps 05/29/23 Previous Rx's Medication Instructions Recorded omeprazole 40 mg capsule,delayed 40 mg PO DAILY 30 days #30 caps 02/02/23 release cephalexin 500 mg capsule 500 mg PO QID 5 days #20 caps 05/29/23 Allergies Allergy/AdvReac Type Severity Reaction Status Date / Time enviornmental Allergy head Uncoded 05/10/23 09:34 congestion General Stated Complaint: Vascular ANUP: 3 PFSH All Active Problems (Updated 05/29/23 @ 15:15 by Evert Joyner MD) Acute pain of right lower extremity (Acute) Cellulitis of right leg (Acute) Localized swelling of right lower leg (Acute) Insomnia (Acute) Morbid obesity (Acute) Seasonal allergies (Acute) Diabetic neuropathy (Acute) Hyperlipidemia (Acute) Diabetes mellitus (Chronic) GERD (gastroesophageal reflux disease) (Chronic) Right shoulder pain (Acute) Right knee pain (Acute) Hemorrhoids (Acute) Dyspnea (Acute) Anal fissure (Acute) Blood in stool (Acute) Hoarseness (Acute) Hematochezia (Acute) Medical History (Updated 05/29/23 @ 15:15 by Evert Joyner MD) Abnormal liver function test Benign paroxysmal positional vertigo Chronic hoarseness Edema Fatty liver Generalized anxiety disorder Learning disability Low back pain Migraine without aura Nicotine addiction Obesity Simple varicose veins Sleep apnea Vitamin D deficiency Surgical History (Updated 05/13/23 @ 08:52 by Krissy Akers) History of cholecystectomy History of colonoscopy (~04/2023) History of hernia repair Hx of varicose vein stripping Social History Smoking/Tobacco Use Status: Former Tobacco Use Quit Date: 10/31/13 Smoking risk assessment performed?: Yes Alcohol Intake: never Drug use: Never Substance use type: does not use Housing: house Current gender identity: male Do you feel safe at home: Yes Do you feel safe in your relationship?: Yes Exam Narrative Exam Narrative: General: Well-appearing in no acute distress speaking in complete sentences. Head: Normocephalic, atraumatic. Eye: Extraocular eye movements intact. No conjunctival injection. No scleral icterus. Ear, nose, mouth, throat: Grossly normal inspection. Normal voice, handling secretions normally. Neck: Trachea midline. Cardiovascular: Well-perfused distal extremities. Respiratory: Nonlabored respiration. Gastrointestinal: Nondistended abdomen. Musculoskeletal: Right lower extremity calf tenderness. Mild erythema proximal tibia. At the posterior aspect of the right fever there is mild increased swelling. No pain out of proportion. Right foot warm and well-perfused with 2+ PT and DP pulses. Cap refill less than 2 seconds in the right toes. Skin: Normal for age and race, grossly normal temperature and turgor. No acute rash. Neurologic: Alert and appropriate, no apparent acute deficits. Psychiatric: Mood and manner are appropriate. Grooming and personal hygiene are appropriate. Course Vital Signs Vital signs: Vital Signs Temperature 36.7 C 05/29/23 12:01 Pulse 96 H 05/29/23 12:01 Respiratory Rate 18 05/29/23 12:01 Blood Pressure 119/71 05/29/23 12:01 Pulse Oximetry 96 05/29/23 12:01 Temperature 36.7 C 05/29/23 12:01 Temperature Source Skin 05/29/23 12:01 Pulse 96 H 05/29/23 12:01 Respiratory Rate 18 05/29/23 14:21 Respiratory Effort Normal, Non-Labored 05/29/23 14:21 Respiratory Depth Normal 05/29/23 14:21 Respiratory Pattern Normal 05/29/23 14:21 Blood Pressure 119/71 05/29/23 12:01 Pulse Oximetry 96 05/29/23 12:01 Oxygen Delivery Method Room Air 05/29/23 12:01 Oxygen Flow Rate 0 05/29/23 12:01 Pain Level 8 05/29/23 14:21 POCUS Exam (ED) Limited Soft Tissue Exam DATE OF EXAM: 05/29/23 TIME OF EXAM: 15:13 LOCATION OF EXAM: Lower extremity/right (Right lower extremity limited ultrasound with cobblestoning over area of pain no deeper fluid collection.) REASON FOR EXAM: Swelling Exam Complete DIFFERENTIAL DIAGNOSES: Limited bedside ultrasound consistent with cellulitis without abscess. Limited Vascular Exam DATE OF EXAM: 07/30/23 TIME OF EXAM: 15:13 Vascular Exam: Right lower extremity REASON FOR EXAM: Concern for DVT right lower extremity Exam Complete INCIDENTAL FINDINGS: Limited bedside ultrasound with no right lower extremity DVT.
[2023-05-29 15:25] LABS: Abs Immature Grans 0.01 10^3/uL (0.0-0.06); Absolute Basophil Count 0.03 10^3/uL (0.0-0.2); Absolute Eosinophil Count 0.07 10^3/uL (0.0-0.7); Absolute Lymphocyte Count 1.51 10^3/uL (1.2-3.4); Absolute Monocyte Count 0.54 10^3/uL (0.1-0.8); Absolute Neutrophil Count 3.01 10^3/uL (1.2-6.7); Basophils % 0.6; Eosinophils % 1.4; HCT 49.8 % (40.0-50.0); HGB 17.4 g/dL (13.5-17.5); Immature Grans % 0.2; Lymphocytes % 29.2; MCH 31.6 pg (27.0-33.0); MCHC 34.9 % (32.0-36.0); MCV 91 fL (80-95); MPV 10.1 fL (8.0-11.0); Monocytes % 10.4; Neutrophils % 58.2; Platelet Count 165 10^3/uL (130-400); RDW 12.6 % (11.8-14.1); RDW-SD 41.4 fL; WBC 5.17 10^3/uL (4.4-10.8)
[2023-05-29 15:35] LABS: Anion Gap 8.2 mmol/L (3-11); BUN 17 mg/dL (7-18); CO2 27.8 mmol/L (21.0-32.0); Chloride 103 mmol/L (98-107); Estimated GFR 97.58 (mL/min/1.73m2); Glucose 191 mg/dL (74-106); Sodium 139 mmol/L (136-145)
[2023-05-29] MEDS: Acetaminophen 500 MG TAB 1000 MG PO (15:40)
[2023-05-29] MEDS: Cephalexin 500 MG CAP PO (15:40)
[2023-05-29 15:54] LABS: D-Dimer 237 ng/mlFEU (<500)
[2023-05-29 16:21] VITALS: BP 112/69; PULSE 74; RESP 18; O2SAT 96
== END 2023-05-29 16:25 | disposition home or self-care (01) ==
PROVIDERS: Emergency Provider Emergency Medicine; PCP Physician Assistant
DX: L03.115 Cellulitis of right lower limb (principal); E78.5 Hyperlipidemia, unspecified; E11.40 Type 2 diabetes mellitus with diabetic neuropathy, unspecified; Z79.84 Long term (current) use of oral hypoglycemic drugs
CPT/HCPCS: 36415; 76882; 80048; 82962; 93971; 99284; 85025; 85379; 99283

== ENCOUNTER 2023-06-02 09:58 | Outpatient (CLI) | payer MEDICARE, SELFPAY ==
--- NOTE | 2023-06-02 14:15 | DI.US_ITS ---
Exam(s) US LOWER EXTREMITY VENOUS RT EXAM: US LOWER EXTREMITY VENOUS RT CLINICAL HISTORY: Localized swelling on rt leg, R22.41; ? DVT. TECHNIQUE: Lower extremity venous ultrasound performed using grayscale, color-flow, and spectral Do ppler analysis. COMPARISON: No exams were available for comparison FINDINGS: The common femoral, femoral and popliteal veins demonstrate normal compressibility, augmentation, and color Doppler. The posterior tibial veins are patent. No saphenous vein thrombosis or other superfi cial venous thrombosis is seen. No hematoma or Bautista's cyst is seen. IMPRESSION: Negative lower extremity ultrasound. No evidence of DVT. DATA REPOSITORY:
== END 2023-06-02 10:18 ==
LOC: DI 09:58
PROVIDERS: PCP Physician Assistant; Visit Provider Physician Assistant
DX: R22.41 Localized swelling, mass and lump, right lower limb (principal)
CPT/HCPCS: 93971

== ENCOUNTER 2023-06-08 16:08 | Outpatient (CLI) | payer MEDICARE, SELFPAY ==
--- NOTE | 2023-06-08 14:30 | DI.RAD_ITS ---
Exam(s) XR KNEE RT 3V AP,LAT,ISAAC EXAM: XR KNEE RT 3V AP,LAT,ISAAC CLINICAL HISTORY: RIGHT KNEE PAIN. TECHNIQUE: 2D digital imaging was performed. Three views. COMPARISON: No exams were available for comparison FINDINGS: BONES: No acute fracture is present. No bony destructive lesion is seen. JOINTS: There are severe degenerative changes of the lateral patellofemoral joint, with a bone-on-bon e appearance. There is lateral patellar subluxation. The femoral tibial joint spaces are maintained . No joint effusion is seen. SOFT TISSUE: Venous varicosities. IMPRESSION: Severe degenerative changes of the patellofemoral joint. DATA REPOSITORY: RADIATION DOSE DELIVERED:
== END 2023-06-08 16:09 | disposition home or self-care (01) ==
LOC: DIORS 16:08
PROVIDERS: PCP Physician Assistant; Referring Provider Physician Assistant; Visit Provider Student in an Organized Health Care Education/Training Program
DX: M25.361 Other instability, right knee
CPT/HCPCS: 73562; 99214

== ENCOUNTER → 2023-06-24 00:34 | Outpatient (CLI) | payer MEDICARE, SELFPAY ==
--- NOTE | 2023-06-24 07:15 | DI.MRI_ITS ---
Exam(s) MR LOWER JOINT RT WO EXAM: MR LOWER JOINT RT WO CLINICAL HISTORY: PAIN,PATELLAR INSTABILITY RT KNEE, M25.361. TECHNIQUE: Multiplanar multisequence MRI was performed. COMPARISON: CR XR KNEE RT 3V AP,LAT,ISAAC from 06/08/2023 FINDINGS: BONES: There is no fracture or contusion pattern. JOINTS: There is loss of the articular cartilage overlying the lateral patellar facet with subchondra l edema present. There is a small amount of fluid in the joint space. No loose body is seen. TENDONS: Extensor mechanism: Unremarkable. Medial retinaculum: Unremarkable. Lateral retinaculum: Unremarkable. Popliteus: Unremarkable. MUSCLES: Unremarkable. MENISCI: The medial meniscus is unremarkable. The lateral meniscus is unremarkable. SOFT TISSUES: There is a small popliteal cyst. Venous varices are seen in the lower extremity soft t issues. LIGAMENTS: Anterior Cruciate: There is mild hyperintense signal seen in the distal anterior cruciate ligament wh ich may represent a partial tear. Posterior Cruciate: Unremarkable. Medial Collateral:There is a small amount of fluid around the MCL which may represent a sprain. No e vidence of a tear. Lateral Collateral: Unremarkable. OTHER: IMPRESSION: 1. Mild hyperintense signal seen in the distal ACL which may represent a partial tear. 2. Findings of a MCL sprain. 3. Grade 4 chondromalacia patella. 4. No evidence of a meniscal tear. DATA REPOSITORY:
== END ==
PROVIDERS: PCP Physician Assistant; Visit Provider Student in an Organized Health Care Education/Training Program
DX: S83.411A Sprain of medial collateral ligament of right knee, initial encounter; X58.XXXA Exposure to other specified factors, initial encounter
CPT/HCPCS: 73721

== ENCOUNTER → 2023-06-24 00:43 | Outpatient (CLI) | payer MEDICARE, SELFPAY ==
--- NOTE | 2023-06-24 | DI.RAD_ITS ---
Exam(s) XR SHOULDER RT COMPLETE 2+V EXAM: XR SHOULDER RT COMPLETE 2+V CLINICAL HISTORY: RT SHOULDER JOINT PAIN M25.511 WITH MILD IMPINGEMENT. TECHNIQUE: 2D digital imaging was performed of the right shoulder. Six images were obtained. AP, G rashey, Y-view and axillary views were obtained. COMPARISON: No exams were available for comparison FINDINGS: BONES: No acute fracture is present. No bony destructive lesion is seen. JOINTS: No dislocation present. The glenohumeral and acromioclavicular joints are well maintained. SOFT TISSUE: Normal. IMPRESSION: Unremarkable radiographs of the right shoulder. DATA REPOSITORY: RADIATION DOSE DELIVERED:
== END ==
PROVIDERS: PCP Physician Assistant; Visit Provider Physician Assistant
DX: M25.511 Pain in right shoulder (principal)
CPT/HCPCS: 73030

== ENCOUNTER → 2023-06-29 13:15 | Outpatient (BNVA) | payer MEDICARE, SELFPAY | PROVIDERS: PCP Physician Assistant; Referring Provider Physician Assistant; Visit Provider Student in an Organized Health Care Education/Training Program | DX: M22.41 Chondromalacia patellae, right knee (principal) | CPT/HCPCS: 99213 ==

== ENCOUNTER 2023-07-21 19:13 | Emergency (ER) | payer MEDICARE, SELFPAY ==
[2023-07-21 19:36] VITALS: BP 117/95; PULSE 85; RESP 20; TEMP 36.5; O2SAT 99
--- NOTE | 2023-07-21 19:45 | ED.GENADUL_ITS ---
Discharge Plan Disposition Patient Disposition: Home Condition: Improving Discharge Details Clinical Impression: Food poisoning Primary Care Provider: Phillip Barillas ED Provider: Shayna Villela Home Meds and New Rx's Prescriptions: Continued lisinopril 20 mg tablet 20 mg PO DAILY omeprazole 40 mg capsule,delayed release(DR/EC) 40 mg PO DAILY 30 Days Qty: 30 3RF zolpidem [Ambien] 10 mg tablet 10 mg PO QHS PRN pregabalin [Lyrica] 300 mg capsule 300 mg PO QHS furosemide 20 mg tablet 20 mg PO DAILY PRN Farxiga 10 mg tablet 10 mg PO DAILY fexofenadine 180 mg tablet 180 mg PO DAILY Patient Comments: pt states not taking atorvastatin [Lipitor] 40 MG tablet 40 mg PO DAILY Patient Comments: not taking Trulicity 1.5 mg/0.5 mL pen injector 1.5 device SUBCUT .WEEKLY Patient Comments: INJECT 1.5 MG UNDER THE SKIN WEEKLY Discharge Instructions Instructions: Food Poisoning (ED) Additional Instructions: Clear fluids and bland diet as tolerated. Zofran 8 mg under your tongue every 8 hours as needed. Recheck with your primary care doc in 24 to 48 hours if your symptoms have not completely resolved. Return to ED for fever and frankly bloo dy stool. Medical Decision Making Patient has had no vomiting or diarrhea in the ED. He took a p.o. challenge without difficulty. He does say he still does not feel well and has a headache. We did give him some IV Tylenol in the ED before discharge. I have given him Zofran to go home with. He was asked to follow-up with his PCP if he is no better in 48 hours. He was unable to give a stool sample in the ED. He was told to return to the ED for frankly bloody stool with a fever. Medical Records Medical records reviewed: Yes I reviewed the patient's medical records. Lab Data Lab results reviewed: Yes I reviewed the patient's lab results. Lab results narrative: Patient's CBC and Chem-20 are normal except for an ALT of 115 and AST of 58. HPI General Date/Time Provider Initiated Documentation: 07/21/23 19:45 . HPI Narrative: This 42-year-old male patient presents with a chief complaint of nausea, vomiting, and diarrhea. Patient states that he bought hamburger at [employer] a week or so ago and made shepherds pie last night. He says a couple of hours after this he began having profuse nausea, vomiting, and diarrhea. He is pretty sure this is food poisoning as he has had this before. This continued throughout the day and the last time he had vomiting or diarrhea was just before he arrived which was an hour ago. He has diffuse crampy abdominal pain with this. There is no fever. He has no chest pain or shortness of breath. There is no dysuria. Nothing really makes this better or worse the vomiting and diarrhea have been pretty severe. Related Data Home Medications Medication Instructions Recorded Confirmed atorvastatin 40 mg tablet (Lipitor) 40 mg PO DAILY 09/26/15 06/29/23 lisinopril 20 mg tablet 20 mg PO DAILY 06/19/20 06/29/23 dulaglutide 1.5 mg/0.5 mL 1.5 device subcut .WEEKLY 09/04/22 06/29/23 subcutaneous pen injector (Trulicity) omeprazole 40 mg capsule,delayed 40 mg PO DAILY 30 days #30 caps 02/02/23 06/29/23 release pregabalin 300 mg capsule (Lyrica) 300 mg PO QHS 04/11/23 06/29/23 zolpidem 10 mg tablet (Ambien) 10 mg PO QHS PRN 04/11/23 06/29/23 furosemide 20 mg tablet 20 mg PO DAILY PRN 04/27/23 06/29/23 dapagliflozin propanediol 10 mg 10 mg PO DAILY 05/19/23 06/29/23 tablet (Farxiga) fexofenadine 180 mg tablet 180 mg PO DAILY 05/19/23 06/29/23 Previous Rx's Medication Instructions Recorded omeprazole 40 mg capsule,delayed 40 mg PO DAILY 30 days #30 caps 02/02/23 release Allergies Allergy/AdvReac Type Severity Reaction Status Date / Time enviornmental Allergy head Uncoded 07/21/23 19:39 congestion General Stated Complaint: Abd Prob ANUP: 3 Review of Systems Constitutional Constitutional: Denies chills, Denies fever(s), Denies headache(s) and Denies weakness Eyes Eyes: Denies diplopia and Reports other (no redness) ENT Ears, Nose, Mouth, and Throat: Denies otalgia, Denies headache(s), Denies nasal congestion, Denies nasal discharge, Denies neck pain and Denies sore throat Cardiovascular Cardiovascular: Denies chest pain, Denies palpitations and Denies dyspnea Respiratory Respiratory: Denies cough and Denies dyspnea Gastrointestinal Gastrointestinal: Reports abdominal pain, Reports diarrhea, Reports nausea and Reports vomiting Genitourinary Genitourinary: Denies difficulty urinating and Denies dysuria Musculoskeletal Musculoskeletal: Denies myalgias, Denies muscle weakness, Denies neck pain, Denies numbness and Reports other (edema) Integumentary/Breasts Skin/Breast: Denies change in pigmentation and Denies rash Neurologic Neurologic: Denies headache(s), Denies numbness and Denies weakness Endocrine Endocrine: Denies palpitations PFSH All Active Problems (Updated 07/21/23 @ 22:12 by Shayna Villela MD) Food poisoning (Acute) Chondromalacia of patella, right (Acute) Patellar instability of right knee (Acute) Insomnia (Acute) Morbid obesity (Acute) Seasonal allergies (Acute) Diabetic neuropathy (Acute) Hyperlipidemia (Acute) Diabetes mellitus (Chronic) GERD (gastroesophageal reflux disease) (Chronic) Right shoulder pain (Acute) Right knee pain (Acute) Hemorrhoids (Acute) Dyspnea (Acute) Anal fissure (Acute) Blood in stool (Acute) Hoarseness (Acute) Hematochezia (Acute) Medical History Abnormal liver function test Benign paroxysmal positional vertigo Chronic hoarseness Edema Fatty liver Generalized anxiety disorder Learning disability Low back pain Migraine without aura Nicotine addiction Obesity Simple varicose veins Sleep apnea Vitamin D deficiency Surgical History History of cholecystectomy History of colonoscopy (~04/2023) History of hernia repair Hx of varicose vein stripping Social History Smoking/Tobacco Use Status: Former Tobacco Use Quit Date: 10/31/13 Smoking risk assessment performed?: Yes Alcohol Intake: never Drug use: Never Substance use type: does not use Housing: house Current gender identity: male Do you feel safe at home: Yes Do you feel safe in your relationship?: Yes Exam Const General: no acute distress, well developed, well groomed and not in acute distress Nutritional Appearance: well nourished Orientation: alert and oriented x3 [facility] Head: normocephalic and atraumatic Ears: external ears normal Mouth: oropharynx normal and moist mucous membranes Throat: posterior oropharynx normal Eyes Conjunctivae: conjunctivae normal Neck Neck: full ROM and supple Chest Chest: normal inspection of the chest Resp Effort & Inspection: normal respiratory effort Auscultation: clear to auscultation bilaterally Cardio Rate: regular rate Rhythm: regular rhythm Heart Sounds: no murmurs and no rubs GI Inspection: normal to inspection Palpation: soft, tender (diffusely TTP with no GR) and other (non distended) Auscultation: normal bowel sounds Skin General skin exam: no rashes or lesions noted and other (pink, warm, dry) Neuro General: patient alert, patient awake and patient oriented x3 Speech: speech normal Motor: other (GONZALES) Sensory Exam: no sensory deficits noted Extrem General: normal to inspection, full ROM and pedal edema present Psych Mental Status: mental status grossly normal Speech and Movement: speech and movement normal Affect: normal affect Course Vital Signs Vital signs: Vital Signs Temperature 36.5 C 07/21/23 19:36 Pulse 85 07/21/23 19:36 Respiratory Rate 20 07/21/23 19:36 Blood Pressure 117/95 H 07/21/23 19:36 Pulse Oximetry 99 07/21/23 19:36 Temperature 36.5 C 07/21/23 19:36 Temperature Source Oral 07/21/23 19:36 Pulse 85 07/21/23 19:36 Respiratory Rate 20 07/21/23 19:36 Respiratory Effort Normal 07/21/23 19:39 Blood Pressure 117/95 H 07/21/23 19:36 Blood Pressure Position Sitting 07/21/23 19:36 Pulse Oximetry 99 07/21/23 19:36 Oxygen Delivery Method Room Air 07/21/23 19:36 Oxygen Flow Rate 0 07/21/23 19:36
[2023-07-21] MEDS: Normal Saline 1,000 ML 1000 ML IV (20:29)
[2023-07-21] MEDS: Ondansetron 4 MG/2 ML VIAL 8 MG IVP (20:30)
[2023-07-21 20:32] LABS: Abs Immature Grans 0.02 10^3/uL (0.0-0.06); Absolute Basophil Count 0.05 10^3/uL (0.0-0.2); Absolute Eosinophil Count 0.08 10^3/uL (0.0-0.7); Absolute Lymphocyte Count 1.42 10^3/uL (1.2-3.4); Absolute Neutrophil Count 3.78 10^3/uL (1.2-6.7); Basophils % 0.9; Eosinophils % 1.4; HCT 49.5 % (40.0-50.0); HGB 17.5 g/dL (13.5-17.5); Immature Grans % 0.3; Lymphocytes % 24.3; MCH 31.8 pg (27.0-33.0); MCHC 35.4 % (32.0-36.0); MCV 90 fL (80-95); MPV 10.1 fL (8.0-11.0); Monocytes % 8.5; Neutrophils % 64.6; Platelet Count 171 10^3/uL (130-400); RBC 5.51 10^6/uL (4.36-5.78); RDW 12.4 % (11.8-14.1); WBC 5.85 10^3/uL (4.4-10.8)
[2023-07-21 20:57] LABS: ALT 115 U/L (16-63); AST 58 U/L (15-37); Albumin 4.2 g/dL (3.4-5.0); Alkaline Phosphatase 72 U/L (46-116); Anion Gap 7.7 mmol/L (3-11); BUN 15 mg/dL (7-18); CO2 29.3 mmol/L (21.0-32.0); CREATININE 0.9 mg/dL (0.70-1.30); Calcium 9.7 mg/dL (8.5-10.1); Chloride 102 mmol/L (98-107); Estimated GFR 110.73 (mL/min/1.73m2); Glucose 100 mg/dL (74-106); Potassium 3.8 mmol/L (3.5-5.1); Sodium 139 mmol/L (136-145)
--- NOTE | 2023-07-21 21:33 | NUR.NOTE ---
PT unable to give stool sample at this time Nursing Note:
--- NOTE | 2023-07-21 22:06 | NUR.NOTE ---
PT given 8oz of water at 2154. PT is not having any nausea vomiting or diarrhea at this timeNursing Note:
[2023-07-21] MEDS: ACETAMINOPHEN 1,000 MG/100 ML BTL 100 MG (22:28)
[2023-07-21] MEDS: Ondansetron O.D.T. 4 MG TABEF 24 MG PO (22:47)
[2023-07-21 22:49] VITALS: BP 114/71; PULSE 69; RESP 18; O2SAT 96
== END 2023-07-21 22:50 | disposition home or self-care (01) ==
PROVIDERS: Emergency Provider Emergency Medicine; PCP Physician Assistant
DX: R10.9 Unspecified abdominal pain (principal); A05.9 Bacterial foodborne intoxication, unspecified; R11.2 Nausea with vomiting, unspecified; R19.7 Diarrhea, unspecified; R51.9 Headache, unspecified
CPT/HCPCS: 80053; 96361; 96374; 99284; 83735; 84484; 85025; J0131; J2405

== ENCOUNTER → 2023-08-04 07:56 | Outpatient (BNVA) | payer MEDICARE, SELFPAY | PROVIDERS: PCP Physician Assistant; Referring Provider Physician Assistant; Visit Provider Student in an Organized Health Care Education/Training Program | DX: M22.41 Chondromalacia patellae, right knee (principal) | CPT/HCPCS: 99214 ==

== ENCOUNTER 2023-08-31 12:24 | Outpatient (CLI) | payer MEDICARE, MEDICAID, SELFPAY ==
[2023-08-31 08:04] LABS: HCT 47.4 % (40.0-50.0); HGB 16.7 g/dL (13.5-17.5); MCH 31.5 pg (27.0-33.0); MCHC 35.2 % (32.0-36.0); MCV 89 fL (80-95); MPV 10.4 fL (8.0-11.0); Platelet Count 151 10^3/uL (130-400); RBC 5.31 10^6/uL (4.36-5.78); RDW 12.8 % (11.8-14.1); RDW-SD 41.7 fL; WBC 3.45 10^3/uL (4.4-10.8)
[2023-08-31 08:13] LABS: Hemoglobin A1C 7.2 % (<5.7)
[2023-08-31 08:21] LABS: Anion Gap 7.9 mmol/L (3-11); BUN 16 mg/dL (7-18); CO2 28.1 mmol/L (21.0-32.0); CREATININE 0.9 mg/dL (0.70-1.30); Calcium 9.6 mg/dL (8.5-10.1); Chloride 102 mmol/L (98-107); Estimated GFR 110.73 (mL/min/1.73m2); Glucose 231 mg/dL (74-106); Potassium 3.6 mmol/L (3.5-5.1); Sodium 138 mmol/L (136-145)
== END 2023-08-31 12:25 | disposition home or self-care (01) ==
LOC: LBO 12:25
PROVIDERS: PCP Physician Assistant; Visit Provider Student in an Organized Health Care Education/Training Program
DX: M22.41 Chondromalacia patellae, right knee (principal); M25.361 Other instability, right knee; Z01.818 Encounter for other preprocedural examination
CPT/HCPCS: 36415; 80048; 85027; 83036

== ENCOUNTER 2023-09-14 07:55 | Day surgery (SDC) | payer MEDICARE, MEDICAID, SELFPAY ==
[2023-09-14] VITALS (12 sets, daily range): BP systolic 100–145; BP diastolic 49–82; PULSE 53–90; RESP 13–19; TEMP 36.1–36.9; O2SAT 95–99; BMI 49.0
[2023-09-14] MEDS: Acetaminophen 500 MG TAB 1000 MG PO (09:06)
[2023-09-14] MEDS: Celecoxib 200 MG CAP 400 MG PO (09:06)
[2023-09-14] MEDS: Gabapentin 300 MG CAP PO (09:07)
--- NOTE | 2023-09-14 09:22 | ANES.PREOP_ITS ---
General Info Date of Service Date Performed: 09/14/23 Height: 5 ft 11 in Weight: 159.4 kg Body Mass Index (BMI): 49.0 Surgical Procedure: Operation Date: 09/14/23 11:45 Proposed Procedure Side Surgeon p Knee Patellofemoral Replacement Right Demetrius Wilson MD Meds Allergies and Home Medications Allergies Allergy/AdvReac Type Severity Reaction Status Date / Time enviornmental Allergy head Uncoded 09/14/23 08:54 congestion Home Medication Medication Instructions Recorded atorvastatin 40 mg tablet (Lipitor) 40 mg PO DAILY 09/26/15 lisinopril 20 mg tablet 20 mg PO DAILY 06/19/20 dulaglutide 1.5 mg/0.5 mL 1.5 device subcut .WEEKLY 09/04/22 subcutaneous pen injector (TrCampanda) omeprazole 40 mg capsule,delayed 40 mg PO DAILY 30 days #30 caps 02/02/23 release pregabalin 300 mg capsule (Lyrica) 300 mg PO QHS 04/11/23 zolpidem 10 mg tablet (Ambien) 10 mg PO QHS PRN 04/11/23 furosemide 20 mg tablet 20 mg PO DAILY PRN 04/27/23 dapagliflozin propanediol 10 mg 10 mg PO DAILY 05/19/23 tablet (Farxiga) acetaminophen 500 mg tablet 1,000 mg (2 x 500 mg) PO TID #90 09/14/23 tabs aspirin 81 mg tablet,delayed 81 mg PO BID #60 tabs 09/14/23 release celecoxib 200 mg capsule 200 mg PO BID #60 caps 09/14/23 dexamethasone 4 mg tablet 4 mg PO DAILY #2 tabs 09/14/23 gabapentin 300 mg capsule 300 mg PO QHS #14 caps 09/14/23 oxycodone 5 mg tablet 5 mg PO Q4H PRN pain #20 tabs 09/14/23 Current Visit Medications: Current Medications Generic Name Dose Route Start Last Admin Trade Name Freq PRN Reason Stop Dose Admin Acetaminophen 1,000 mg 09/14/23 06:00 09/14/23 09:06 Acetaminophen 500 Mg Tab PO 10/14/23 05:59 1,000 mg PREOP NOAM Administration Acetaminophen 1,000 mg 09/14/23 07:27 Acetaminophen 500 Mg Tab PO 10/14/23 07:26 TID PRN PRN Analgesia Celecoxib 400 mg 09/14/23 06:00 09/14/23 09:06 Celecoxib 200 Mg Cap PO 10/14/23 05:59 400 mg PREOP NOAM Administration Docusate Sodium 100 mg 09/14/23 07:27 Docusate Sodium 100 Mg Cap PO 10/14/23 07:26 BID PRN PRN Constipation Gabapentin 300 mg 09/14/23 06:00 09/14/23 09:07 Gabapentin 300 Mg Cap PO 10/14/23 05:59 300 mg PREOP NOAM Administration Tranexamic Acid 1,000 mg/ 60 mls @ 360 mls/hr 09/14/23 06:00 Sodium Chloride IVPB 10/14/23 05:59 PREOP NOAM Cefazolin Sodium 3,000 mg/ 100 mls @ 200 mls/hr 09/14/23 06:00 Sodium Chloride IV 09/14/23 16:00 PREOP NOAM Ringer's Solution 1,000 mls @ 80 mls/hr 09/14/23 06:00 IV 09/14/23 23:59 INFUSION [facility] IV Miscellaneous Supplies 1 each 09/14/23 06:00 Iv Access IV 09/14/23 23:59 DIRECTED NOAM Ondansetron HCl 4 mg 09/14/23 07:27 Ondansetron 4 Mg/2 Ml Vial IVP 10/14/23 07:26 Q6H PRN PRN Nausea Oxycodone HCl 0 mg 09/14/23 07:27 Oxycodone 5 Mg Tab PO 10/14/23 07:26 Q3H PRN PRN Pain Polyethylene Glycol 17 gm 09/14/23 07:27 Polyethylene Glycol 3350 17 Gm Packet PO 10/14/23 07:26 BID PRN PRN Constipation Sodium Chloride 0 ml 09/14/23 06:00 Normal Saline Flush 10 Ml Syr IV 09/14/23 23:59 PRN PRN Sodium Chloride 0 ml 09/14/23 06:00 Normal Saline 10 Ml Vial IJ 09/14/23 23:59 DIRECTED PRN Sterile Water 0 ml 09/14/23 06:00 Water,Injection,Sterile 10 Ml Vial IJ 09/14/23 23:59 DIRECTED PRN PFSH Active Problems Active Problems: Problem Status Onset Code Chondromalacia of patella, 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 instability of right knee M25.361 Insomnia G47.00 Morbid obesity E66.01 Seasonal allergies J30.2 Diabetic neuropathy E11.40 Hyperlipidemia E78.5 Diabetes mellitus E11.9 GERD (gastroesophageal reflux disease) K21.9 Right shoulder pain M25.511 Right knee pain M25.561 Hemorrhoids K64.9 Dyspnea R06.00 Anal fissure K60.2 Blood in stool K92.1 Hoarseness R49.0 Hematochezia K92.1 Medical History Medical History Abnormal liver function test Benign paroxysmal positional vertigo Chronic hoarseness Edema Fatty liver Generalized anxiety disorder Learning disability Low back pain Migraine without aura Nicotine addiction Obesity Simple varicose veins Sleep apnea Vitamin D deficiency Medical History Comments:: pt reports he last chewed tobacco 09/13/23 23:30 Surgical History Surgical History History of cholecystectomy History of colonoscopy (~04/2023) History of hernia repair Hx of varicose vein stripping Tobacco Smoking/Tobacco Use Status: Former Tobacco Use Alcohol Alcohol Intake: never Substance Use Substance use: Never Substance use type: does not use Vital Signs and Lab Results Vital Signs Most Recent Vital Signs in EMR: Most Recent Vital Signs Temp Pulse Resp BP Pulse Ox 36.5 C 62 18 130/63 95 09/14/23 08:43 09/14/23 08:43 09/14/23 08:43 09/14/23 08:43 09/14/23 08:43 Lab Results Blood Type / Crossmatch: No Data to Display Complete Blood Count: White Blood Count 3.45 10^3/uL (4.4-10.8) L 08/31/23 07:45 Red Blood Count 5.31 10^6/uL (4.36-5.78) 08/31/23 07:45 Hemoglobin 16.7 g/dL (13.5-17.5) 08/31/23 07:45 Hematocrit 47.4 % (40.0-50.0) 08/31/23 07:45 Platelet Count 151 10^3/uL (130-400) 08/31/23 07:45 Complete Metabolic Panel: Sodium 138 mmol/L (136-145) 08/31/23 07:45 Potassium 3.6 mmol/L (3.5-5.1) 08/31/23 07:45 Chloride 102 mmol/L (98-107) 08/31/23 07:45 Carbon Dioxide 28.1 mmol/L (21.0-32.0) 08/31/23 07:45 BUN 16 mg/dL (7-18) 08/31/23 07:45 Creatinine 0.9 mg/dL (0.70-1.30) 08/31/23 07:45 Est GFR (CKD-EPI 2020) 110.73 (mL/min/1.73m2) 08/31/23 07:45 Calcium 9.6 mg/dL (8.5-10.1) 08/31/23 07:45 Glucose 231 mg/dL (74-106) H 08/31/23 07:45 Hemoglobin A1c 7.2 % (<5.7) H 08/31/23 07:45 Liver Function Panel: No Data to Display Coagulation Panel: No Data to Display Cardiac Panel: No Data to Display Arterial Blood Gas: No Data to Display Venous Blood Gas: No Data to Display Pancreas Panel: No Data to Display Thyroid Panel: No Data to Display Infectious Disease: No Data to Display Blood Cultures: No Data to Display Toxicology Panel: No Data to Display Imaging and Studies Imaging and Studies Study information below may be from another EMR and interpreted by another provider. Please see original notes in EMR for more complete details. EKG Summary: 10/28/2021: Exam: Resting ECG Reason for Exam: pre-op Patient Location: O HR:74 bpm ECG Measurements Heart Rate 74 AXIS VT 191 P 33 QRSd 83 QRS 27 QT 375 T35 QTc 416 Conclusion Sinus rhythm...normal P axis, V-rate 60- 99 Normal Electrocardiogram Echocardiogram Summary: 06/22/2016: *STUDY CONCLUSIONS* Summary: 1. Left ventricle: The cavity size was normal. Wall thickness was at the upper limits of normal. Systolic function was normal. The estimated ejection fraction was 55-60%. Wall motion was normal; there were no regional wall motion abnormalities. 2. Right ventricle: The cavity size was normal. Systolic function was normal. Anesthesia Assessment and Plan Anesthesia History Personal History: No History of Anesthesia Complications Family History: Family History Unknown Exercise Tolerance Exercise Tolerance: Metabolic Equivalents>4 Pertinent Negatives Pertinent Negatives: No Symptoms of GERD (controlled with omeprazole, took today) Cardiac & Pulmonary Exam Cardiac Exam: Normal S1/S2 Heart Sounds Pulmonary Exam: Clear Bilateral Breath Sounds Implantable Cardiac Device Does patient have a Pacemaker or an ICD?: No Airway Exam Known Difficult Airway: No Mallampati Class: 2 Mouth Opening: Normal (> 3cm) Thyromental Distance: Greater than 3 cm Neck Range of Motion: Full ROM Neck Circumference: Thick Teeth Condition: Generalized Poor Dentition (none loose per pt) ASA Classification ASA Score: ASA 3 Emergency Case?: No NPO Status NPO Status: NPO Clears >2 hours, Solids >8 hours Anesthesia Plan Resuscitation Status: Full Code Anesthesia Technique: Spinal Anesthesia Airway Planned: Natural Airway Pain Management: Surgeon and patient request nerve block Monitors Used: Standard Monitors Preoperative Comments:: SHAHEED CPAP Gluc check 254
[2023-09-14] MEDS: Lactated Ringers 1,000 ML 80 ML IV (09:24)
--- NOTE | 2023-09-14 09:25 | W.PREOPHP ---
Assessment and Plan Assessment and plan (1) Chondromalacia of patella, right: Status: Acute Assessment and plan: Cuong is a 43-year-old with patellofemoral arthritis of the right knee and is here today for patellofemoral replacement. I reviewed the surgery with him once again. I discussed the risk to include bleeding, infection, pain, stiffness, damage to nerves and vessels, damage to muscle and tendons, implant instability, patellar instability, loosening, need for repeat procedures, damage to nerves or vessels, blood clot. Despite these risk, he elects to proceed. History of Present Illness History of Present Illness Chief Complaint: Right Patellofemoral Arthritis Narrative: Cuong is a 43-year-old male who has ongoing pain about his right knee. He has confirmed patellofemoral arthritis. He is here today for patellofemoral replacement. Please see the previous office note for complete detailed history. He denies any chest pain or shortness of breath. He does have diabetes but has been well controlled and stopped his diabetes medications appropriately. Review of Systems All systems reviewed & are unremarkable except as noted in HPI and below PFSH All Active Problems Chondromalacia of patella, right (Acute) Patellar instability of right knee (Acute) Insomnia (Acute) Morbid obesity (Acute) Seasonal allergies (Acute) Diabetic neuropathy (Acute) Hyperlipidemia (Acute) Diabetes mellitus (Chronic) GERD (gastroesophageal reflux disease) (Chronic) Right shoulder pain (Acute) Right knee pain (Acute) Hemorrhoids (Acute) Dyspnea (Acute) Anal fissure (Acute) Blood in stool (Acute) Hoarseness (Acute) Hematochezia (Acute) Medical History Sleep apnea Fatty liver Vitamin D deficiency Low back pain Simple varicose veins Benign paroxysmal positional vertigo Learning disability Edema Obesity Nicotine addiction Migraine without aura Chronic hoarseness Abnormal liver function test Generalized anxiety disorder Surgical History History of colonoscopy (~04/2023) Hx of varicose vein stripping History of hernia repair History of cholecystectomy Social History Smoking/Tobacco Use Status: Former Tobacco Use Quit Date: 10/31/13 Smoking risk assessment performed?: Yes Alcohol Intake: never Drug use: Never Substance use type: does not use Housing: house Current gender identity: male Do you feel safe at home: Yes Do you feel safe in your relationship?: Yes Meds Allergies and Home Medications Allergies Allergy/AdvReac Type Severity Reaction Status Date / Time enviornmental Allergy head Uncoded 09/14/23 08:54 congestion Home Medications Medication Instructions Recorded Confirmed Type atorvastatin 40 mg tablet (Lipitor) 40 mg PO DAILY 09/26/15 09/14/23 History lisinopril 20 mg tablet 20 mg PO DAILY 06/19/20 09/14/23 History dulaglutide 1.5 mg/0.5 mL 1.5 device subcut .WEEKLY 09/04/22 09/13/23 History subcutaneous pen injector (Trulicity) omeprazole 40 mg capsule,delayed 40 mg PO DAILY 30 days #30 caps 02/02/23 09/14/23 Rx release pregabalin 300 mg capsule (Lyrica) 300 mg PO QHS 04/11/23 09/14/23 History zolpidem 10 mg tablet (Ambien) 10 mg PO QHS PRN 04/11/23 09/14/23 History furosemide 20 mg tablet 20 mg PO DAILY PRN 04/27/23 09/14/23 History dapagliflozin propanediol 10 mg 10 mg PO DAILY 05/19/23 09/13/23 History tablet (Farxiga) acetaminophen 500 mg tablet 1,000 mg (2 x 500 mg) PO TID #90 09/14/23 Rx tabs aspirin 81 mg tablet,delayed 81 mg PO BID #60 tabs 09/14/23 Rx release celecoxib 200 mg capsule 200 mg PO BID #60 caps 09/14/23 Rx dexamethasone 4 mg tablet 4 mg PO DAILY #2 tabs 09/14/23 Rx gabapentin 300 mg capsule 300 mg PO QHS #14 caps 09/14/23 Rx oxycodone 5 mg tablet 5 mg PO Q4H PRN pain #20 tabs 09/14/23 Rx Exam Resp Auscultation: clear to auscultation bilaterally Cardio Rate: regular rate Rhythm: regular rhythm Heart Sounds: S1 normal, S2 normal and no murmurs Results Last Vital Signs Temp 36.5 C 09/14/23 08:43 Pulse 62 11/15/23 08:43 Resp 18 09/14/23 08:43 BP 130/63 09/14/23 08:43 Pulse Ox 95 09/14/23 08:43
--- NOTE | 2023-09-14 10:12 | W.ANESNERVE ---
Nerve Block Single Injection Procedure Date and Time Date Performed: 09/14/23 Procedure Start: 10:00 Location Where Procedure Performed Procedure Location: Day Surgery Unit Reason Performed: Postoperative Analgesia Requesting Provider: Demetrius Wilson Timeout Performed Timeout Performed: Yes Monitoring Used ECG, Blood Pressure, SpO2 and See EMR for corresponding vital signs Sterility Sterility: Hand Hygiene, Surgical Cap, Surgical Mask, Sterile Gloves, Sterile Drape/Sheet and Chlorhexidine Sedation Given During Procedure Sedation Given (Indicate Dose Given): Versed IV Dose:: 2 mg Patient Mental Status Patient Mental Status: Awake Nerve Block 1st Nerve Block: Laterality: Right Block Type: Adductor Canal Ultrasound Image Saved?: Yes Needle / Catheter Used: 100mm SonoPlex II Local Anesthetic Bolus (Indicate Dose Given): Lidocaine used for local infiltration of skin, Injected in 3-5ml increments after negative blood aspiration and Bupivacaine 0.25% Dose:: 15 ml Additives (Indicate Dose Given): None Ultrasound: Sterile probe cover and gel used Nerve Stimulator: Not Used Paresthesia: None Procedure Tolerated: No Complications and Patient tolerated well Procedure Outcome: Successful Performed By: Lilian Manzanares
[2023-09-14] MEDS: Normal Saline Flush 10 ML SYR IV (10:36)
[2023-09-14] MEDS: ceFAZolin 3,000 MG in Normal Saline 100 ML 200 MG IV (10:40)
--- NOTE | 2023-09-14 13:23 | PDOC.DSDIS_ITS ---
Date of service: 09/14/23 Time of Service: 12:29 Discharge Plan Disposition Patient Disposition: Home Condition: Good Discharge Details Reason For Visit: Partial Knee Replacement R Knee Attending Provider: Demetrius Wilson Primary Care Provider: Phillip Barillas Home Meds and New Rx's Prescriptions: New acetaminophen 500 mg tablet 1,000 mg PO TID Qty: 90 3RF aspirin 81 mg tablet,delayed release (DR/EC) 81 mg PO BID Qty: 60 0RF celecoxib 200 mg capsule 200 mg PO BID Qty: 60 0RF dexamethasone 4 mg tablet 4 mg PO DAILY Qty: 2 0RF gabapentin 300 mg capsule 300 mg PO QHS Qty: 14 0RF oxycodone 5 mg tablet 5 mg PO Q4H MDD 6 tabs PRN (Reason: pain) Qty: 20 0RF Continued lisinopril 20 mg tablet 20 mg PO DAILY omeprazole 40 mg capsule,delayed release(DR/EC) 40 mg PO DAILY 30 Days Qty: 30 3RF zolpidem [Ambien] 10 mg tablet 10 mg PO QHS PRN Patient Comments: 09/14/23 pt reports he has not collected from pharmacy pregabalin [Lyrica] 300 mg capsule 300 mg PO QHS furosemide 20 mg tablet 20 mg PO DAILY PRN Patient Comments: 09/14/23 pt reports last took 8 months ago Farxiga 10 mg tablet 10 mg PO DAILY atorvastatin [Lipitor] 40 MG tablet 40 mg PO DAILY Patient Comments: not taking Trulicity 1.5 mg/0.5 mL pen injector 1.5 device SUBCUT .WEEKLY Patient Comments: INJECT 1.5 MG UNDER THE SKIN WEEKLY Discharge Instructions Additional Instructions: Partial Knee Discharge Instructions Activity: The most important activity is to walk and to work on gentle motion (both flexion and extension). You should try to take short walks a few times a day. It is important that when resting you work on keeping the knee straight. Avoid putting a pillow behind the knee as this will encourage flexion. Work on range of motion exercises as provided by Physical Therapy. - Start outpatient physical therapy within 2 weeks. - You should wear the OCTAVIO hose on both legs for 2 weeks. You may remove these at night. You may also use any compression sock in place of the OCTAVIO hose. - Utilize [employer] to review exercises, see videos on exercises and obtain basic information pertaining to your surgery and your recovery. Dressing: Remove the Jesse wrap by 2 days after your surgery and put on the OCTAVIO stocking given to you from the hospital. Keep the surgical dressing (underneath the JESSE wrap) in place for at least one week. After the first week it may be removed and replaced with light gauze and tape or nothing. The wound and dressing may get wet after 3 days but avoid soaking the dressing or otherwise it will need to be changed. Many people prefer covering the dressing with cling wrap (saran wrap) to minimize it from getting soaked. If it gets wet, just pat dry. If it starts to peel off then it will need to be changed. Medications: - You should take Tylenol and anti-inflammatory Celebrex as your primary pain control medications. If the Celebrex is too expensive or not covered, please call the office for another alternative (Advil/Ibuprofen or Naproxen/Aleve) - You have been prescribed a stronger pain medication Oxycodone for breakthrough pain, take as needed as prescribed. - You will continue your omeprazole to help reduce stomach acid and reflux. - You have been prescribed Gabapentin to take at night for restlessness and nerve pain. - You will be taking Aspirin 81mg twice a day for DVT prevention unless instructed otherwise. - You have also been prescribed Decadron to take to control post-operative nausea and pain. You will start this tomorrow. - If you have constipation you should take Colace or Miralax (both [id number]). It takes most people 3-4 days to have a bowel movement. Follow-up: 2 weeks If you have any acute concerns or questions, please do not hesitate to contact the office at [phone]. You may contact Dr. Wilson with any questions after hours through the hospital at [phone] or on his cell phone at [phone]. Stand Alone Forms: Anesthesia Discharge Inst., [place]ito.Nerve Block Instructions, Linda Thomas ([facility]U) Referrals: Demetrius Wilson MD [ [facility] STAFF PHYSICIAN] - 09/29/23 9:00 am Equipment/Supplies: Walker Activity:: Activity as Tolerated Shower/Bathe:: 72 hours Diet:: As Tolerated Discharge Orders Discharge Orders: Discharge Order (Routine); Ordered 11/15/23 Ordered By: Demetrius Wilson DS: Diagnosis Discharge Diagnosis (1) Chondromalacia of patella, right: Status: Acute
--- NOTE | 2023-09-14 13:23 | W.PM.OP ---
Date of service: 09/14/23 Time of Service: 11:00 Operative Note Operative Note DATE OF PROCEDURE: 09/14/23 PRE-OP DIAGNOSIS: Right Patellofemoral Arthritis POST-OP DIAGNOSIS: same PROCEDURE: Right Patlleofemoral Replacement SURGEON: Demetrius Wilson MANAGER OF PURCHASING: Jeff Garcia ANESTHESIA TYPE: Spinal Refer to Anesthesia Record ESTIMATED BLOOD LOSS: 50 PATHOLOGY: none sent TOURNIQUET TIME: 0 COMPLICATIONS: None Patient was transported to: PACU Patient's condition: stable Implants: 1. Arthrosurface [place] Trochlear Component, 7x5mm 2. Depuy Attune Patellar Button, 38mm Indications: Cuong is a 43yo male who has had symptoms of right patellofemoral arthritis with patellar maltracking. Conservative measures have been exhausted yet pain and dysfunction persisted. Please see office notes for complete details. Given the continued symptoms, I recommended a patellofemoral replacement. I reviewed the risks of the procedure to include bleeding, infection, pain, stiffness, worsening medial or lateral compartment arthritis, patellar instability, loosening, fracture, clot. Despite these risks, Cuong elected to proceed. Findings: There was notable arthritic change within the patellofemoral compartment. Procedure Description: Cuong was greeted in the preoperative holding area where the correct side was identified and marked. The consent was reviewed with the patient and signed. The history and physical was updated. All questions were answered. Preoperative mediacations were administered: Acetaminophen 1000mg, Celebrex 400mg, and Gabapentin 300mg. An adductor canal block was then administered by the anesthesia team in the PACU. Cuong was taken back to the operating room. A spinal anesthestic was then administered. The patient was placed into the supine position on the operating room table. A nonsterile tourniquet was placed high onto the leg but not used. Posts were placed for positioning during the procedure. All bony prominences were well padded. Prophylactic antibiotics in the form of Cefazolin were administered. 1g of Tranxemic Acid was given intravenously within 30 minutes of incision. The right leg was then prepped with Chloraprep and draped in a standard fashion with impervious stockinette and extremity drape. A second prep with Chloraprep was performed prior to placing Ioband. A timeout to confirm correct identity, side and site, procedure, allergies, anesthesia, and medical concerns was performed. With the knee in some flexion, a midline incision was made overlying the knee. Full thickness skin flaps were raised once the extensor mechanism was encountered. These were raised medially and laterally. Any bleeding was controlled with electrocautery. Once the extensor mechanism was fully exposed, a medial parapatellar arthrotomy was performed in a flexed position. All bleeding from the arthrotomy and the geniculate arteries was coagulated. The menisci and intrameniscal ligament was preserved. There is notable erosion and eburnation of the trochlea, more laterally than medially along with the lateral aspect of the patella. The knee was held in extension and the patella was measured as 23 mm. Using the patellar clamp and cut guide, this was resected to a flat surface with at least 13mm of thickness remaining. The size 38 patella fit the best. This was oriented and then clamped into position. The lugs were drilled. The Arthrosurface patellofemoral trial was then placed in the appropriate position and a single guidewire was placed through the center of this device. This was confirmed to be in appropriate location using the targeting arm. The trochlea was then sized in both directions corresponding to an 7x5. The initial reamer was then placed and taken down to appropriate depth. The reaming and drill guide was then placed within this recess and secured with pins. Using both the centralized reamer and the edge reamer, the trochlear recess was prepared. The guide was removed and the edges were curetted for completeness. The central hole was then prepared with a drill and a tap. The outer surface screw was then inserted to the premeasured depth. The 7x5mm patellofemoral [facility] trochlear component by Arthrosurface was then malleted into position sitting flush over the lateral and proximal lateral aspect. High viscosity cement was prepared on the back table under vacuum preparation. When ready, cement was manually impacted into the cut surface of the patella and the patellar button was clamped into position and held. During this process attention was turned to the gutters of the knee and for all interfaces for any excess cement. While the cement was hardening, the knee was irrigated with Irrisept chlorhexadine solution. It was allowed to sit in the knee for 3 minutes. After the cement had finally cured, approximately 15min, the clamp was removed from the patella and the knee was taken through range of motion. The capsule was then reapproximated with a No. 1 Vicryl as well as a running, barbed #2 STRATAFIX suture. Deep tissues were then reapproximated with 0 Vicryl and 2-0 Vicryl. The skin was closed with a running 3-0 Monocryl in a subcuticular fashion. This was reinforced with skin glue. A Mepilex silver dressing was applied along with a [id number] MECCA wrap. A CryoCuff was applied. Cuong was transferred to the hospital bed without difficulty an suffering no apparent complication. Cuong has a good prognosis. Physical therapy will start today and without restrictions, weight-bearing as tolerated. Aspirin 81mg BID will be used for DVT prophylaxis.
[2023-09-14] MEDS: oxyCODONE 5 MG TAB PO (13:25)
--- NOTE | 2023-09-14 15:54 | PT.INIE ---
PT Notes Visit Reasons: Partial Knee Replacement R Knee Physical Therapy Day Surgery Initial Evaluation Date: 09/14/2023 Referring Doctor: WISAM Rivera PT Orders: PT CONSULT: S/P Ortho Surgery Precautions: WBAT on right LE with AD. 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 PMHX: All Active Problems Chondromalacia of patella, right (Acute) Patellar instability of right knee (Acute) Insomnia (Acute) Morbid obesity (Acute) Seasonal allergies (Acute) Diabetic neuropathy (Acute) Hyperlipidemia (Acute) Diabetes mellitus (Chronic) GERD (gastroesophageal reflux disease) (Chronic) Right shoulder pain (Acute) Right knee pain (Acute) Hemorrhoids (Acute) Dyspnea (Acute) Anal fissure (Acute) Blood in stool (Acute) Hoarseness (Acute) Hematochezia (Acute) Medical History Sleep apnea Fatty liver Vitamin D deficiency Low back pain Simple varicose veins Benign paroxysmal positional vertigo Learning disability Edema Obesity Nicotine addiction Migraine without aura Chronic hoarseness Abnormal liver function test Generalized anxiety disorder Surgical History History of colonoscopy (~04/2023) Hx of varicose vein stripping History of hernia repair History of cholecystectomy Social History/Home Situation: Cuong lives with his parents in a private home with no steps to enter but with a flight of steps to the basement of the house where his bedroom is. 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 Equipment Owned/DME: None Subjective: Cuong said that he has had increasing difficulty at home and at work resulting from his knee issue. He reports 7/10 pain in the R knee at rest and with movement. Objective: General Observation: Resting in stretcher. MECCA wrap to R LE. Cryocuff to R knee. TEDS to L leg. Mental Status: A and O x 4 Pain: As above ROM: Right Lower Extremity: Hip flexion WFL. Hip abduction WFL. Knee flexion 45 degrees to 90 actively. Knee extension -45 degrees. Ankle dorsiflexion WFL. Ankle plantarflexion WFL. Left Lower Extremity: Hip flexion WFL. Hip abduction WFL. Knee flexion WFL. Ankle dorsiflexion WFL. Ankle plantarflexion WFL. Strength: Right Lower Extremity: Hip flexors 4/5. Hip abductors 4/5. Knee flexors 3-/5. Knee extensors 3-/5. Ankle dorsiflexors 4/5. Ankle plantarflexors 4/5. Left Lower Extremity:Hip flexors 5/5. Hip abductors 5/5. Knee flexors 5/5. Knee extensors 5/5. Ankle dorsiflexors 5/5. Ankle plantarflexors 5/5. Sensation: Intact as to pain and light pressure in B LE Bed Mobility/Transfers: Provided cueing for use of B hands for support, movement sequence, and safety to reduce fall risk Supine to sit stand by assist Sit to stand contact guard assist Stand to sit stand by assist Bed to chair Stand by assist Gait: Facilitated safe and correct level surface ambulation performance covering a distance of 150 feet using front wheeled walker with reciprocal step through heel-toe gait pattern, stand by assist from PT. Reported 6-7/10 pain in the R knee after activity. Minimal verbal cueing provided to increase bending in the right hand during swing phase. Stairs: Guided safe and correct negotiation of 3 x 4 inch steps and 2 x 6 inch steps while holding onto bilateral rails with step-to gait pattern requiring standby assist and minimal verbal cueing for limb advancement, movement sequence, and increased knee flexion right during ascent. Balance: Static Sitting: Normal Dynamic Sitting: Normal Static Standing: Fair Dynamic Standing: Fair Special Tests: Mobility Limitations Standardized Measure [facility] AM-PAC 6 clicks Basic Mobility Inpatient Short Form: Raw Score: 23 CMS Score: 11% deficit Informed Consent/Education: Patient instructed in purpose of PT consult. Packet containing L patellofemoral replacement exercise protocol has been given to patient. Education and training on initial set of exercises that can be done at home have been completed with patient. Trained patient with correct performance of exercises below to maximize motor control, joint flexibility, soft tissue extensibility of the [] knee musculature: Access Code: [email or web address] URL: [email or web address] Date: 09/14/2023 Prepared by: Talita Wallace Exercises - Supine Quad Set - 1 x daily - 7 x weekly - 1 sets - 10 reps - 5 hold - Supine Heel Slide - 1 x daily - 7 x weekly - 1 sets - 10 reps - 5 hold - Supine Ankle Pumps - 1 x daily - 7 x weekly - 1 sets - 10 reps - 5 hold - Small Range Straight Leg Raise - 1 x daily - 7 x weekly - 1 sets - 10 reps - 5 hold - Seated March - 1 x daily - 7 x weekly - 1 sets - 10 reps - 5 hold Assessment: Patient requires the use of bariatric front-wheeled walker for all mobility ADL performance to maximize independence and reduce risk. Patient presents with clinical signs and symptoms consistent with current/admitting diagnoses that have resulted to mobility limitations, gait instability, generalized weakness, and impairment of motor control as demonstrated by the following impairment level findings: 1. Decreased strength to right knee major muscle groups 2. Impaired standing balance 3. Limitation of joint range of motion in right knee Impairments are contributing to the following functional limitations: 1. Inability to safely ambulate without assistive device 2. Increase completion time for mobility ADL performance 3. Increased fall risk Patient is assessed as a 77457 moderate complexity based on the following: History: 43-year-old male with impairment level findings, functional limitations, and past medical history as indicated above Examination: Demonstrable impairment in strength, balance, and mobility level with underlying impairments and functional limitations as documented above Presentation: Evolving Decision Makin moderate complexity Goals: N/A. PT evaluation and 1-2 treatment sessions only for functional mobility training using recommended AD and for HEP instruction. Plan of Care/Treatment Plan: N/A. PT evaluation and 1-2 treatment session only for functional mobility training using recommended AD and for HEP instruction. DISCHARGE RECOMMENDATIONS: Home when medically cleared by orthopedic surgeon. Recommend outpatient PT services in order to optimize functional mobility outcomes and facilitate return to independent community ambulation without an assistive device. TREATMENT CODE/TIME: 79206 x 20 minutes for 1 unit, 31875 x 26 minutes for 2 units beginning at 14:50 PM. Thank you for the opportunity to participate in the care of this patient. Talita Wallace PT, DPT, CLT [facility] [place], [place]
--- NOTE | 2023-09-14 16:27 | W.ANESPOSTOP ---
Postoperative Evaluation Date, Time and Location Date Performed: 09/14/23 Time Performed: 14:58 Patient Location: Day Surgery Unit Vital Signs Most Recent Imported Vital Signs: Most Recent Vital Signs Temp Pulse Resp BP Pulse Ox 36.9 C 67 16 145/82 H 97 09/14/23 14:49 09/14/23 14:49 09/14/23 14:49 09/14/23 14:49 09/14/23 14:49 Pain Score Most Recent Pain Score: Most Recent Pain Score Pain Level 6 09/14/23 14:49 Assessment Mental Status: Awake (Alert & Oriented to Patient Baseline) Airway and Respiratory Function: Patent airway with normal (patient baseline) respiratory exam Cardiovascular Function: Hemodynamically Stable Hydration Status: Adequately Hydrated Nausea & Vomiting: No Nausea or Vomiting Pain: Pain is Moderate or Severe Postoperative Pain Management: Pain being addressed with medication Peripheral Nerve Block: Regional nerve block not resolved at time of post operative discharge Postoperative Comments:: I entered when patient was on a phone call. He was calm, conversive and did not appear in acute analgesic distress. He has received PO analgesia.
== END 2023-09-14 16:15 | disposition home or self-care (01) ==
LOC: SUR 07:56
PROVIDERS: PCP Physician Assistant; Visit Provider Student in an Organized Health Care Education/Training Program
PROC: (CPT 27437; principal; 2023-09-14 11:15)
DX: M22.41 Chondromalacia patellae, right knee (principal); M17.11 Unilateral primary osteoarthritis, right knee; E11.40 Type 2 diabetes mellitus with diabetic neuropathy, unspecified; E66.01 Morbid (severe) obesity due to excess calories; Z68.42 Body mass index [BMI] 45.0-49.9, adult
CPT/HCPCS: 27438; C1776; 76942; 97162; 97530; J0690; J1100; J2250; J2371; J2405

== ENCOUNTER 2023-09-29 13:51 | Outpatient (CLI) | payer MEDICARE, MEDICAID, SELFPAY ==
--- NOTE | 2023-09-29 08:45 | DI.RAD_ITS ---
Exam(s) XR KNEE RT 3V AP,LAT,ISAAC EXAM: XR KNEE RT 3V AP,LAT,ISAAC CLINICAL HISTORY: 1ST POST OP S/P R PF REPLACEMENT. TECHNIQUE: 2D digital imaging was performed. Three images were obtained. AP, lateral and merchant's views were obtained. COMPARISON: CR XR KNEE RT 3V AP,LAT,ISAAC from 06/08/2023 FINDINGS: BONES: There are stable post operative changes of a partial right knee replacement present. No fract ure or dislocation. JOINTS: The orthopedic hardware is in good position. No evidence of hardware loosening. SOFT TISSUE: Normal. IMPRESSION: Status post partial right knee replacement. DATA REPOSITORY: RADIATION DOSE DELIVERED:
== END 2023-09-29 13:52 | disposition home or self-care (01) ==
LOC: DIORS 13:51
PROVIDERS: PCP Physician Assistant; Referring Provider Physician Assistant; Visit Provider Student in an Organized Health Care Education/Training Program
DX: Z47.1 Aftercare following joint replacement surgery; Z96.651 Presence of right artificial knee joint; M22.41 Chondromalacia patellae, right knee
CPT/HCPCS: 73562

== ENCOUNTER 2023-10-18 10:44 | Emergency (ER) | payer MEDICARE, MEDICAID, SELFPAY ==
[2023-10-18] VITALS (20 sets, daily range): BP systolic 107–127; BP diastolic 64–74; PULSE 76–85; RESP 20; TEMP 36.7; O2SAT 93–97
--- NOTE | 2023-10-18 10:45 | RT.EKG_ITS ---
APPROVED REPORT Exam: Resting ECG Reason for Exam: sob Patient Location: E HR:84 bpm ECG Measurements Heart Rate 84 AXIS MT 174 P 41 QRSd 74 QRS 34 QT 355 T 43 QTc 420 Conclusion Sinus rhythm...V-rate 60- [address] segment or T wave abnormalitites to suggest occlusive MS
--- NOTE | 2023-10-18 11:03 | ED.GENADUL_ITS ---
Discharge Plan Disposition Patient Disposition: Home Condition: Good Discharge Details Chief Complaint: RespSymp Clinical Impression: COVID-19 Primary Care Provider: Phillip Barillas ED Provider: Alina Francis Home Meds and New Rx's Prescriptions: No Action lisinopril 20 mg tablet 20 mg PO DAILY omeprazole 40 mg capsule,delayed release(DR/EC) 40 mg PO DAILY 30 Days Qty: 30 3RF zolpidem [Ambien] 10 mg tablet 10 mg PO QHS PRN Patient Comments: 09/14/23 pt reports he has not collected from pharmacy pregabalin [Lyrica] 300 mg capsule 300 mg PO QHS furosemide 20 mg tablet 20 mg PO DAILY PRN Patient Comments: 09/14/23 pt reports last took 8 months ago Farxiga 10 mg tablet 10 mg PO DAILY atorvastatin [Lipitor] 40 MG tablet 40 mg PO DAILY Patient Comments: not taking acetaminophen 500 mg tablet 1,000 mg PO TID Qty: 90 3RF aspirin 81 mg tablet,delayed release (DR/EC) 81 mg PO BID Qty: 60 0RF gabapentin 300 mg capsule 300 mg PO QHS Qty: 14 0RF Paxlovid 300 mg (150 mg x 2)-100 mg tablets,dose pack See Rx Instructions .ROUTE .COMPLEX Rx Instructions: take TWO 150 mg tablets of nirmatrelvir with ONE 100 mg tablet of ritonavir twice daily for 5 days Discharge Instructions Instructions: COVID-19 (Coronavirus Disease 2019) (ED) Additional Instructions: Call your primary care doctor today to schedule an appointment to follow up on your visit here. Discuses your elevated blood glucose and liver enzymes at that time. Continue taking Paxlovid. Return to the emergency department for new or worsening symptoms including new/worse/different chest pain, worsening shortness of breath, O2 saturation below 90% on home O2 monitor, or if you have any other concerns. Referrals: Phillip Barillas [Primary Care Provider] - Medical Decision Making 43yo M with DM, HLD, obesity, SHAHEED, COVID + 2 days ago currently on Paxlovid, presenting for shortness of breath and chest pressure. Symptoms have been constant and worsening for the past three days. Chest pressure is dull, substernal, constant, not pleuritic. Vitals signs reassuring on arrival, no hypoxia or tachycardia. Reassuring physical exam with no respiratory distress. PERC negative; would not further pursue pulmonary embolism with dimer or CT. Despite overall well appearance, with risk factors will get EKG/CXR/labs. EKG NSR, appropriate intervals, no ST segment or T wave abnormalities to suggest occlusive DE. CXR independently reviewed, no focal pneumonia or pneumothorax on my view, agree with radiology read below. Labs reviewed as below, CBC and CMP reassuring with no actionable abnormalities, VBG reassuring, troponin negative in the setting of days of constant pain (would not further pursue acute coronary syndrome). Advised to followup with PCP regarding elevated blood glucose and LFTs. Advised symptomatic treatment at home. Discharged; discharge instructions and return precautions were reveiwed with patient who verbalized understanding. All questions were answered and he is in full agreement with the plan. Imaging Data Radiologic Study: Imaging: X-Ray Radiologist's impression: IMPRESSION: No acute pulmonary findings on this single AP portable view of the chest. Lab Data Lab results reviewed: Yes I reviewed the patient's lab results. Labs: Laboratory Tests Range/Units 10/18/23 10/18/23 11:12 14:02 WBC (4.4-10.8) 10^3/uL 3.59 L RBC (4.36-5.78) 10^6/uL 5.48 Hgb (13.5-17.5) g/dL 17.1 Hct (40.0-50.0) % 48.9 MCV (80-95) fL 89 MCH (27.0-33.0) pg 31.2 MCHC (32.0-36.0) % 35.0 RDW (11.8-14.1) % 12.7 Plt Count (130-400) 10^3/uL 150 MPV (8.0-11.0) fL 10.4 Immature Gran % 0.3 Neutrophils % 48.2 Lymphocytes % 32.3 Monocytes % 16.7 Eosinophils % 1.9 Basophils % 0.6 Nucleated RBC % (0.0-0.3) % 0.0 Absolute Neutrophils (1.2-6.7) 10^3/uL 1.73 Absolute Lymphocytes (1.2-3.4) 10^3/uL 1.16 L Absolute Monocytes (0.1-0.8) 10^3/uL 0.60 Absolute Eosinophils (0.0-0.7) 10^3/uL 0.07 Absolute Basophils (0.0-0.2) 10^3/uL 0.02 VBG pH (7.31-7.41) 7.37 VBG pCO2 (41-51) mmHg 47 VBG pO2 mmHg 47 VBG HCO3 (23-28) mmol/L 27 VBG Total CO2 (24-29) mmol/L 23 L VBG O2 Saturation % 83 VBG Base Excess (-2-3) mmol/L 2 Sodium (136-145) mmol/L 137 Potassium (3.5-5.1) mmol/L 3.6 Chloride (98-107) mmol/L 103 Carbon Dioxide (21.0-32.0) mmol/L 27.4 Anion Gap (3-11) mmol/L 6.6 BUN (7-18) mg/dL 12 Creatinine (0.70-1.30) mg/dL 0.9 Est GFR (CKD-EPI 2020) (mL/min/1.73m2) 110.04 Glucose (74-106) mg/dL 192 H Calcium (8.5-10.1) mg/dL 8.9 Total Bilirubin (0.2-1.0) mg/dL 1.0 AST (15-37) U/L 61 H ALT (16-63) U/L 137 H Alkaline Phosphatase (46-116) U/L 69 Troponin I (<or=60) ng/L < 50 Cancelled Total Protein (6.4-8.2) g/dL 7.5 Albumin (3.4-5.0) g/dL 3.6 HPI General Mode of arrival: ambulatory . Date/Time Provider Initiated Documentation: 10/18/23 10:46 . Limitations to Documentation: no limitations . Information obtained by: patient . HPI Narrative: 43yo M with DM, HLD, obesity, SHAHEED, COVID + 2 days ago currently on Paxlovid, presenting for shortness of breath and chest pressure. Symptoms have been constant and worsening for the past three days. Chest pressure is dull, substernal, constant, not pleuritic, no alleviating or aggravating factors. Shortness of breath is worse with exertion. Cough is productive of thin sputum. No hemoptysis. Has also had fevers and cough. No new LE edema. Has had diarrhea since starting Paxlovid. No nausea, vomiting, or abdominal pain. No history of blood clots. He is otherwise in his usual state of health with no chills, rash, palpitations, numbness, weakness, or other concerns. Related Data Home Medications Medication Instructions Recorded Confirmed atorvastatin 40 mg tablet (Lipitor) 40 mg PO DAILY 09/26/15 10/18/23 lisinopril 20 mg tablet 20 mg PO DAILY 06/19/20 10/18/23 omeprazole 40 mg capsule,delayed 40 mg PO DAILY 30 days #30 caps 02/02/23 10/18/23 release pregabalin 300 mg capsule (Lyrica) 300 mg PO QHS 04/11/23 10/18/23 zolpidem 10 mg tablet (Ambien) 10 mg PO QHS PRN 04/11/23 10/18/23 furosemide 20 mg tablet 20 mg PO DAILY PRN 04/27/23 10/18/23 dapagliflozin propanediol 10 mg 10 mg PO DAILY 05/19/23 10/18/23 tablet (Farxiga) acetaminophen 500 mg tablet 1,000 mg (2 x 500 mg) PO TID #90 09/14/23 10/18/23 tabs aspirin 81 mg tablet,delayed 81 mg PO BID #60 tabs 09/14/23 10/18/23 release gabapentin 300 mg capsule 300 mg PO QHS #14 caps 09/14/23 10/18/23 nirmatrelvir 300 mg (150 mg See Rx Instructions PO .COMPLEX 10/18/23 10/18/23 x2)-ritonavir 100 mg tablet,dose pack (Paxlovid) Previous Rx's Medication Instructions Recorded omeprazole 40 mg capsule,delayed 40 mg PO DAILY 30 days #30 caps 02/02/23 release acetaminophen 500 mg tablet 1,000 mg (2 x 500 mg) PO TID #90 09/14/23 tabs aspirin 81 mg tablet,delayed 81 mg PO BID #60 tabs 09/14/23 release gabapentin 300 mg capsule 300 mg PO QHS #14 caps 09/14/23 Allergies Allergy/AdvReac Type Severity Reaction Status Date / Time enviornmental Allergy head Uncoded 10/18/23 11:00 congestion General Stated Complaint: RespSymp ANUP: 3 Review of Systems Narrative: see HPI PFSH All Active Problems (Updated 10/18/23 @ 12:22 by Alina Francis MD) COVID-19 (Acute) Chondromalacia of patella, right (Acute) Patellar instability of right knee (Acute) S/P PF REPLACEMENT Insomnia (Acute) Morbid obesity (Acute) Seasonal allergies (Acute) Diabetic neuropathy (Acute) Hyperlipidemia (Acute) Diabetes mellitus (Chronic) GERD (gastroesophageal reflux disease) (Chronic) Right shoulder pain (Acute) Right knee pain (Acute) Hemorrhoids (Acute) Dyspnea (Acute) Anal fissure (Acute) Blood in stool (Acute) Hoarseness (Acute) Hematochezia (Acute) Medical History Sleep apnea Fatty liver Vitamin D deficiency Low back pain Simple varicose veins Benign paroxysmal positional vertigo Learning disability Edema Obesity Nicotine addiction Migraine without aura Chronic hoarseness Abnormal liver function test Generalized anxiety disorder Surgical History History of colonoscopy (~04/2023) Hx of varicose vein stripping History of hernia repair History of cholecystectomy Social History Smoking/Tobacco Use Status: Former Tobacco Use Quit Date: 10/31/13 Smoking risk assessment performed?: Yes Alcohol Intake: never Drug use: Never Substance use type: does not use Housing: house Current gender identity: male Do you feel safe at home: Yes Do you feel safe in your relationship?: Yes Exam Narrative Exam Narrative: General: Alert, obese,, in no acute distress. Head: Normocephalic, atraumatic Neck: Trachea midline, ?Neck supple. Cardiac: ?RRR, no murmurs appreciated Resp: No respiratory distress. CTAB, distant breath sounds. Abd: ?Non-distended. Extremities: ?No deformities.? No peripheral edema. Neurologic: GCS 15. ? Moves all extremities freely against gravity Course Vital Signs Vital signs: Vital Signs Pulse Oximetry 96 10/18/23 10:52 Temperature 36.7 C 10/18/23 10:58 Temperature Source Oral 10/18/23 10:58 Pulse 81 10/18/23 10:58 Respiratory Rate 20 10/18/23 10:58 Respiratory Effort Short of Breath 10/18/23 10:58 Respiratory Depth Normal 10/18/23 10:58 Blood Pressure 119/72 10/18/23 10:56 Blood Pressure Mean 79 10/18/23 10:56 Blood Pressure Position Sitting 10/18/23 10:58 Pulse Oximetry 96 10/18/23 10:58 Oxygen Delivery Method Room Air 10/18/23 10:58 Oxygen Flow Rate 0 10/18/23 10:53 Pain Level 8 10/18/23 10:58
[2023-10-18 11:17] LABS: BE (Venous) 2 mmol/L (-2-3); HCO3 (Venous) 27 mmol/L (23-28); O2 Sat (Venous) 83 %; TCO2 (Venous) 23 mmol/L (24-29); pCO2 (Venous) 47 mmHg (41-51); pH (Venous) 7.37 (7.31-7.41); pO2 (Venous) 47 mmHg
[2023-10-18 11:19] LABS: Abs Immature Grans 0.01 10^3/uL (0.0-0.06); Absolute Basophil Count 0.02 10^3/uL (0.0-0.2); Absolute Eosinophil Count 0.07 10^3/uL (0.0-0.7); Absolute Lymphocyte Count 1.16 10^3/uL (1.2-3.4); Absolute Neutrophil Count 1.73 10^3/uL (1.2-6.7); Basophils % 0.6; Eosinophils % 1.9; HCT 48.9 % (40.0-50.0); HGB 17.1 g/dL (13.5-17.5); Immature Grans % 0.3; Lymphocytes % 32.3; MCH 31.2 pg (27.0-33.0); MCV 89 fL (80-95); MPV 10.4 fL (8.0-11.0); Monocytes % 16.7; Neutrophils % 48.2; Platelet Count 150 10^3/uL (130-400); RBC 5.48 10^6/uL (4.36-5.78); RDW 12.7 % (11.8-14.1); RDW-SD 41.8 fL; WBC 3.59 10^3/uL (4.4-10.8)
--- NOTE | 2023-10-18 11:32 | DI.RAD_ITS ---
Exam(s) XR PORTABLE CHEST AP EXAM: XR PORTABLE CHEST AP CLINICAL HISTORY: short of breath. TECHNIQUE: 2D digital imaging was performed. COMPARISON: CR,XR XR PORTABLE CHEST AP from 09/04/2022 FINDINGS: Single AP portable view. Heart size is upper normal. The mediastinum is not widened. Lungs are clear. No infiltrates nor obvious pleural effusions. IMPRESSION: No acute pulmonary findings on this single AP portable view of the chest. DATA REPOSITORY: RADIATION DOSE DELIVERED:
[2023-10-18 11:46] LABS: ALT 137 U/L (16-63); AST 61 U/L (15-37); Albumin 3.6 g/dL (3.4-5.0); Alkaline Phosphatase 69 U/L (46-116); Anion Gap 6.6 mmol/L (3-11); BUN 12 mg/dL (7-18); CO2 27.4 mmol/L (21.0-32.0); CREATININE 0.9 mg/dL (0.70-1.30); Calcium 8.9 mg/dL (8.5-10.1); Chloride 103 mmol/L (98-107); Estimated GFR 110.04 (mL/min/1.73m2); Glucose 192 mg/dL (74-106); Potassium 3.6 mmol/L (3.5-5.1); Sodium 137 mmol/L (136-145); Total Protein 7.5 g/dL (6.4-8.2); Troponin I < 50 ng/L (<or=60)
== END 2023-10-18 12:30 | disposition home or self-care (01) ==
PROVIDERS: Emergency Provider Student in an Organized Health Care Education/Training Program; PCP Physician Assistant
DX: U07.1 COVID-19 (principal); E11.40 Type 2 diabetes mellitus with diabetic neuropathy, unspecified; E78.5 Hyperlipidemia, unspecified; Z79.82 Long term (current) use of aspirin; Z11.52 Encounter for screening for COVID-19
CPT/HCPCS: 80053; 82805; 87426; 93005; 99283; 71045; 84484; 85025; 93010

== ENCOUNTER → 2023-11-03 07:52 | Outpatient (BNVA) | payer MEDICARE, SELFPAY | PROVIDERS: PCP Physician Assistant; Referring Provider Physician Assistant | DX: Z47.1 Aftercare following joint replacement surgery (principal); Z96.651 Presence of right artificial knee joint ==

== ENCOUNTER → 2023-11-05 10:42 | Outpatient (CLI) | payer MEDICARE, MEDICAID, SELFPAY ==
--- NOTE | 2023-11-05 | DI.RAD_ITS ---
Exam(s) XR CHEST 2V PA LATERAL EXAM: XR CHEST 2V PA LATERAL CLINICAL HISTORY: Cough TECHNIQUE: 2D digital imaging was performed of the chest. Two images were obtained. PA and lateral views were obtained. COMPARISON: CR XR PORTABLE CHEST AP from 10/18/2023 FINDINGS: MEDIASTINUM: Normal. HEART: Normal. PULMONARY VASCULATURE: Normal. LUNGS: Clear. PLEURAL SPACE: No pleural effusion or pneumothorax. BONE:Within normal limits for the patient's age. OTHER FINDINGS:Normal. IMPRESSION: No acute pulmonary findings. DATA REPOSITORY: RADIATION DOSE DELIVERED:
--- NOTE | 2023-11-05 11:58 | DI.VRAD_ITS ---
PROCEDURE INFORMATION: Exam: XR Chest Exam date and time: 11/05/2023 10:53 AM Age: 43 years old Clinical indication: Cough TECHNIQUE: Imaging protocol: Radiologic exam of the chest. Views: 2 views. COMPARISON: CR XR PORTABLE CHEST AP 10/18/2023 11:26 AM FINDINGS: Lungs: Unremarkable. No consolidation. Pleural spaces: Unremarkable. No pleural effusion. No pneumothorax. Heart/Mediastinum: Unremarkable. No cardiomegaly. Bones/joints: Unremarkable. IMPRESSION: No acute findings. Dictated and Authenticated by: Miguelito Laguerre MD. Ordering:BENNIE Jo MD
== END ==
PROVIDERS: PCP Physician Assistant; Visit Provider Physician Assistant Medical
DX: R05.9 Cough, unspecified (principal)
CPT/HCPCS: 71046

== ENCOUNTER 2023-12-16 09:36 | Outpatient (REF) | payer MEDICARE, MEDICAID, SELFPAY ==
[2023-12-16 16:46] LABS: ALT 126 U/L (16-63); AST 57 U/L (15-37); Albumin 3.7 g/dL (3.4-5.0); Alkaline Phosphatase 70 U/L (46-116); Anion Gap 8.3 mmol/L (3-11); BUN 18 mg/dL (7-18); CO2 26.7 mmol/L (21.0-32.0); CREATININE 0.8 mg/dL (0.70-1.30); Calcium 9.2 mg/dL (8.5-10.1); Calculated LDL 88 mg/dL (<100); Chloride 106 mmol/L (98-107); Cholesterol 143 mg/dL (<200); Estimated GFR 114.02 (mL/min/1.73m2); Glucose 177 mg/dL (74-106); HDL Cholesterol 37 mg/dL (40-60); Sodium 141 mmol/L (136-145); Total Protein 6.9 g/dL (6.4-8.2); Triglyceride 93 mg/dL (<150)
[2023-12-16 17:27] LABS: Hemoglobin A1C 6.8 % (<5.7)
[2023-12-16 23:00] LABS: Hepatitis C Ab w Rflx HCV PCR Negative (Negative)
== END 2023-12-16 09:37 | disposition home or self-care (01) ==
LOC: NCHCN 09:36
PROVIDERS: PCP Physician Assistant; Referring Provider Physician Assistant; Visit Provider Physician Assistant
DX: E78.5 Hyperlipidemia, unspecified (principal); E11.9 Type 2 diabetes mellitus without complications
CPT/HCPCS: 80053; 80061; 86803; 83036

== ENCOUNTER 2025-08-10 13:54 | Emergency (ER) | payer MEDICARE, SELFPAY ==
[2025-08-10 13:56] VITALS: BP 109/74; PULSE 91; RESP 20; TEMP 36.7; O2SAT 95
--- NOTE | 2025-08-10 14:10 | W.ED.GENAD ---
Discharge Plan Disposition Patient Disposition: Home Condition: Good Discharge Details Clinical Impression: Acute bronchitis Primary Care Provider: Phillip Barillas ED Provider: Steven Kwon Meds and New Rx's Prescriptions: New amoxicillin-pot clavulanate 875-125 mg tablet 1 tab PO Q12H Qty: 14 0RF benzonatate 100 mg capsule 100 mg PO BID PRN (Reason: cough) Qty: 14 0RF Continued lisinopril 20 mg tablet 20 mg PO DAILY omeprazole 40 mg capsule,delayed release(DR/EC) 40 mg PO DAILY 30 Days Qty: 30 3RF zolpidem [Ambien] 10 mg tablet 10 mg PO QHS PRN Patient Comments: 09/14/23 pt reports he has not collected from pharmacy pregabalin [Lyrica] 300 mg capsule 300 mg PO QHS furosemide 20 mg tablet 20 mg PO DAILY PRN Patient Comments: 09/14/23 pt reports last took 8 months ago dapagliflozin propanediol [Farxiga] 10 mg tablet 10 mg PO DAILY atorvastatin [Lipitor] 40 MG tablet 40 mg PO DAILY Patient Comments: not taking acetaminophen 500 mg tablet 1,000 mg PO TID Qty: 90 3RF gabapentin 300 mg capsule 300 mg PO QHS Qty: 14 0RF Mounjaro 12.5 mg/0.5 mL pen injector SUBCUT Mounjaro 15 mg/0.5 mL pen injector SUBCUT .weekly Discharge Instructions Instructions: Acute bronchitis, Bronchitis, Adult ED Discharge Data Discharge Date/Time-TO BE ENTERED AT DEPARTURE: 08/10/25 17:16 Discharge Physician: Steven Kwon [facility] General Date/Time Provider Initiated Documentation: 08/10/25 14:09. Related Data Home Medications ?Medication ?Instructions ?Recorded ?Confirmed atorvastatin 40 mg tablet (Lipitor) 40 mg PO DAILY 09/26/15 08/10/25 lisinopril 20 mg tablet 20 mg PO DAILY 06/19/20 08/10/25 omeprazole 40 mg capsule,delayed 40 mg PO DAILY 30 days #30 caps 02/02/23 08/10/25 release pregabalin 300 mg capsule (Lyrica) 300 mg PO QHS 04/11/23 08/10/25 zolpidem 10 mg tablet (Ambien) 10 mg PO QHS PRN 04/11/23 08/10/25 furosemide 20 mg tablet 20 mg PO DAILY PRN 04/27/23 08/10/25 dapagliflozin propanediol 10 mg 10 mg PO DAILY 05/19/23 08/10/25 tablet (Farxiga) acetaminophen 500 mg tablet 1,000 mg (2 x 500 mg) PO TID #90 09/14/23 08/10/25 tabs gabapentin 300 mg capsule 300 mg PO QHS #14 caps 09/14/23 08/10/25 amoxicillin 875 mg-potassium 1 tab PO Q12H #14 tabs 08/10/25 clavulanate 125 mg tablet benzonatate 100 mg capsule 100 mg PO BID PRN cough #14 caps 08/10/25 tirzepatide 12.5 mg/0.5 mL mg subcut 08/10/25 subcutaneous pen injector (Vinayakro) tirzepatide 15 mg/0.5 mL mg subcut .weekly 08/10/25 subcutaneous pen injector (Vinayakro) Previous Rx's ?Medication ?Instructions ?Recorded omeprazole 40 mg capsule,delayed 40 mg PO DAILY 30 days #30 caps 02/02/23 release acetaminophen 500 mg tablet 1,000 mg (2 x 500 mg) PO TID #90 09/14/23 tabs gabapentin 300 mg capsule 300 mg PO QHS #14 caps 09/14/23 amoxicillin 875 mg-potassium 1 tab PO Q12H #14 tabs 08/10/25 clavulanate 125 mg tablet benzonatate 100 mg capsule 100 mg PO BID PRN cough #14 caps 08/10/25 Allergies Allergy/AdvReac Type Severity Reaction Status Date / Time enviornmental Allergy head Uncoded 08/10/25 14:04 congestion General Stated Complaint: [facility] ANUP: 3 Course Vital Signs Vital signs: Vital Signs Temperature 36.7 C 08/10/25 13:56 Pulse 91 H 08/10/25 13:56 Respiratory Rate 20 08/10/25 13:56 Blood Pressure 109/74 08/10/25 13:56 Pulse Oximetry 95 08/10/25 13:56 Temperature 36.7 C 08/10/25 13:56 Temperature Source Oral 08/10/25 13:56 Pulse 91 H 08/10/25 13:56 Respiratory Rate 20 08/10/25 13:56 Blood Pressure 109/74 08/10/25 13:56 Blood Pressure Position Sitting 08/10/25 13:56 Pulse Oximetry 95 08/10/25 13:56 Oxygen Delivery Method Room Air 08/10/25 13:56 Oxygen Flow Rate 0 08/10/25 13:56 Pain Level 8 08/10/25 13:56 Medical Decision Making MDM: Summary: Patient presents to the emergency department complaining of cough productive sputum showed pictures of the yellow-green sputum. He had an x-ray done which was negative his most likely has acute bacterial otitis we will place an antibiotic. X-ray does not show any Data Review Analysis All the data on this patient was reviewed by me including laboratory and imaging studies as well as bedside studies performed by me Independent review of Studies Imaging Patient shows no infiltrate shows positional markings but I will place on a [place] Lab: Risk Stratification: Patient with bronchitis will be discharged home Differential Diagnosis: 1. Acute bronchitis 2. Pneumonia COVID-19 infection 3. 4. 5. Consultants: Shared disposition: Patient signed suspicion for according Impression: PFSH All Active Problems (Updated 08/10/25 @ 17:05 by Steven Kwon MD) Acute bronchitis (Acute) COVID-19 (Acute) Chondromalacia of patella, right (Acute) Patellar instability of right knee (Acute) S/P PF REPLACEMENT Insomnia (Acute) Morbid obesity (Acute) Seasonal allergies (Acute) Diabetic neuropathy (Acute) Hyperlipidemia (Acute) Diabetes mellitus (Chronic) GERD (gastroesophageal reflux disease) (Chronic) Right shoulder pain (Acute) Right knee pain (Acute) Hemorrhoids (Acute) Dyspnea (Acute) Anal fissure (Acute) Blood in stool (Acute) Hoarseness (Acute) Hematochezia (Acute) Medical History Sleep apnea Fatty liver Vitamin D deficiency Low back pain Simple varicose veins Benign paroxysmal positional vertigo Learning disability Edema Obesity Nicotine addiction Migraine without aura Chronic hoarseness Abnormal liver function test Generalized anxiety disorder Surgical History History of colonoscopy (~04/2023) Hx of varicose vein stripping History of hernia repair History of cholecystectomy Social History Smoking/Tobacco Use Status: Former Tobacco Use Quit Date: 10/31/13 Smoking risk assessment performed?: Yes Alcohol Intake: never Drug use: Never Substance use type: does not use Housing: house Current gender identity: male Do you feel safe at home: Yes Do you feel safe in your relationship?: Yes
--- NOTE | 2025-08-10 14:15 | DI.RAD_ITS ---
Exam(s) XR CHEST 2V PA LATERAL EXAM: XR CHEST 2V PA LATERAL CLINICAL HISTORY: cough productice sputum TECHNIQUE: 2D digital imaging was performed of the chest. Two images were obtained. PA and lateral views were obtained. COMPARISON: CR XR CHEST 2V PA LATERAL from 08/11/2021 CR XR PORTABLE CHEST AP from 10/18/2023 CR,XR XR CHEST 2V PA LATERAL from 11/05/2023 FINDINGS: MEDIASTINUM: Normal. HEART: Normal. PULMONARY VASCULATURE: Normal. LUNGS: There are no focal consolidating infiltrates. PLEURAL SPACE: No pleural effusion or pneumothorax. BONE:Within normal limits for the patient's age. OTHER FINDINGS:Normal. IMPRESSION: 1. No acute pulmonary findings. 2. The preliminary [facility] report was reviewed. DATA REPOSITORY: RADIATION DOSE DELIVERED:
[2025-08-10 15:41] VITALS: BP 109/74; PULSE 91; RESP 20; TEMP 36.7; O2SAT 95
--- NOTE | 2025-08-10 15:58 | DI.[facility]_ITS ---
PROCEDURE INFORMATION: Exam: XR Chest Exam date and time: 08/10/2025 2:24 PM Age: 44 years old Clinical indication: Other: Cough productice sputum TECHNIQUE: Imaging protocol: Radiologic exam of the chest. Views: 2 views. COMPARISON: CR XR CHEST 2V PA LATERAL 11/05/2023 10:53 AM FINDINGS: Lungs: There is no pulmonary consolidation or mass. Interstitial prominence bilaterally. Pleural spaces: There is no evidence of pleural effusion or pneumothorax. Heart/Mediastinum: The cardiomediastinal silhouette is normal. Bones/joints: No acute osseous findings. IMPRESSION: Bilateral interstitial prominence. No focal consolidation. Dictated and Authenticated by: Martita Reyna MD. Orderin Cher Harris MD
[2025-08-10 17:14] VITALS: BP 120/74; PULSE 73; RESP 16; O2SAT 97
== END 2025-08-10 17:16 | disposition home or self-care (01) ==
PROVIDERS: Emergency Provider Emergency Medicine Emergency Medical Services; PCP Physician Assistant
DX: J20.9 Acute bronchitis, unspecified (principal)
CPT/HCPCS: 99283 ×2; 71046